=== PATIENT | female | born 1965 | race Caucasian/White ===

== ENCOUNTER 2019-04-01 05:49 | Day surgery (SDC) | payer MEDICARE ==
[2019-04-01] MEDS ORDERED: Lactated Ringers 1,000 ML IV SCH (06:30)
[2019-04-01] MEDS ORDERED: DIPRIVAN 200 MG/20 ML IV ONE ×2 (07:27→07:45)
[2019-04-01 08:25] VITALS: O2SAT 97
[2019-04-01 09:14] VITALS: BP 148/67; PULSE 66
--- NOTE | 2019-04-01 11:38 | OP ---
SURGERY DATE/TIME: 04/01/2019 0733 PREOPERATIVE DIAGNOSIS: Persistent epigastric abdominal pain. POSTOPERATIVE DIAGNOSIS: Normal exam. PROCEDURE: Diagnostic EGD. SURGEON: Feliciano Kang M.D. ANESTHESIA: MAC by Rafael To CRNA. ESTIMATED BLOOD LOSS: None. SPECIMENS: None. DESCRIPTION OF PROCEDURE: After informed written consent was obtained, the patient was taken to the endoscopy suite. She underwent monitored anesthesia and a bite block was inserted. The endoscope was inserted into the posterior oropharynx and under direct visualization the esophagus was traversed. The esophageal mucosa was free of any lesions or defects. Upon entering the stomach a normal gastroesophageal junction was noted. The gastric mucosa had a normal rugated appearance free of any obvious lesions or defect. The antrum was closely inspected with no evidence of gastritis, ulceration, etc. The pylorus was traversed. The first and second portions of the duodenum showed no abnormalities. The scope was removed and upon withdrawal again all mucosal structures appeared within normal limits. The scope was removed and the patient was transferred to the recovery room in good condition.
== END 2019-04-01 09:00 | disposition home or self-care (01) ==
LOC: SDC 05:49
PROVIDERS: ATTEND Family Medicine
DX: R10.13 Epigastric pain (principal); E11.9 Type 2 diabetes mellitus without complications; I25.10 Atherosclerotic heart disease of native coronary artery without angina pectoris; E78.5 Hyperlipidemia, unspecified
CPT/HCPCS: 82962; J2704

== ENCOUNTER 2020-02-16 14:52 | Observation (INO) | payer MEDICARE ==
[2020-02-16 15:34] LABS: Absolute Neutrophil Ct (ANC) 4.36 (1.4-6.9); BASOPHIL % 0.5 % (0.0-0.4); Basophil (Absolute #) 0.04 (0-0.4); Eosinophil % 5.7 % (0.00-5.0); Eosinophil (Absolute #) 0.46 (0-0.5); Hematocrit 38.8 % (35-47); Hemoglobin 12.5 gm/dl (12.0-16.0); Lymphocyte (Absolute #) 2.67 (1.0-4.6); Mean Cell Volume 93.3 fl (78-100); Mean Corpuscular Hgb Concent. 32.2 g/dl (32-36); Mean Platelet Volume 10.3 fl (7.5-11.0); Monocyte (Absolute #) 0.55 (0.0-1.3); Monocytes % 6.8 % (0.0-12.0); Platelet Count 279 K/mm3 (150-450); Red Blood Count 4.16 M/mm3 (4.1-5.4); Red Cell Distribution Width 13.8 % (11.5-14.0); White Blood Count 8.1 K/mm3 (4.0-10.5)
[2020-02-16 15:51] LABS: ALBUMIN 4.4 g/dL (3.5-5.0); ALKALINE PHOSPHATASE 80 U/L (38-126); ANION GAP 16.1 MEQ/L (5-15); BLOOD UREA NITROGEN 13 mg/dL (7-17); CHLORIDE 102 mmol/L (98-107); Calcium 9.7 mg/dL (8.4-10.2); Carbon Dioxide 26 mmol/L (22-30); Creatinine 1 0.71 mg/dL (0.52-1.04); Glucose 116 mg/dL (74-106); MAGNESIUM 1.7 mg/dL (1.6-2.3); NT PRO BNP 163 pg/mL (0-900); Potassium 4.6 mmol/L (3.5-5.1); SGOT/AST 24 U/L (14-36); SGPT/ALT 19 U/L (0-35); SODIUM 140 mmol/L (137-145); Total Protein 7.4 g/dL (6.3-8.2)
[2020-02-16 16:13] LABS: INFLUENZA A NEGATIVE (NEGATIVE); INFLUENZA B NEGATIVE (NEGATIVE); RESPIRATORY SYNCTIAL VIRUS NEGATIVE (Negative)
--- NOTE | 2020-02-16 16:17 | XRAY ---
Indication: Short of breath. Comparison: February 27, 2016. Portable chest again demonstrates hazy lingula infiltrate/atelectasis. Remaining lungs clear. Heart not enlarged again with CABG surgery. Bony thorax intact again with lower cervical fusion.
[2020-02-16 16:22] LABS: Appearance CLEAR (CLEAR); Bilirubin NEGATIVE (NEGATIVE); Blood NEGATIVE Ery/ul (0-5); Glucose NEGATIVE (NEGATIVE); Ketones NEGATIVE (NEGATIVE); Leukocyte Esterase NEGATIVE (NEGATIVE); Mucus SLIGHT /HPF (NEGATIVE); Nitrite NEGATIVE (NEGATIVE); Protein,Urine Dip NEGATIVE (Negative); Specific Gravity 1.017 (1.005-1.025); Urobilinogen NEGATIVE mg/dL (0-1)
--- NOTE | 2020-02-16 16:27 | ERPHSYRPT ---
- History of Present Illness Time Seen by Provider: 02/16/20 14:56 Historian: patient Exam Limitations: no limitations Patient Subjective Stated Complaint: pt here for chest pain and shortness of breath since this morning, she wears o2 at night, no cough or fever, pt was sent over from the resp clinic Triage Nursing Assessment: pt alert, arrived per wc, with mask, resp easy, chest diminished to lower bases, moves all ext well Physician History: Patient is a 54-year-old female with a history of CABG x3 vessels in 2012 and coronary artery stent x2 placed in 2013. Patient presents to our ED with complaints of chest pain or shortness of breath that started this morning at approximately 6 AM. Symptoms have been constant. Patient is a diabetic. Symptoms are mild to moderate in intensity. No specific worsening or improving factors. No associated fever. No trauma. No nausea or vomiting. No diarrhea. No rash. Patient voices no other complaints at this time. Timing/Duration: today (Symptoms started 6 AM this morning.), improved Activities at Onset: none Quality: aching Location: substernal Chest Pain Radiation: no radiation Modifying Factors: Improves With: nothing Associated Symptoms: denies symptoms Nitro Today/Relief: no nitro taken today Aspirin Treatment Today: no aspirin today (Patient took her dose of Plavix today ) Allergies/Adverse Reactions: No Known Drug Allergies Allergy (Verified 02/16/20 15:16) Home Medications: Atorvastatin Calcium [Lipitor 40Mg] 80 mg PO HS 04/17/15 [History] Clopidogrel Bisulfate 75 mg [PLAVIX 75 MG Tablet] 75 mg PO DAILY 04/17/15 [History] Ferrous Sulfate 325 mg [Feosol 325 mg] 325 mg PO DAILY 04/17/15 [History] Hydrocodone Bit/Acetaminophen [[place] 10-325 Tablet] 1 ea PO QID PRN PRN [History] Magnesium Oxide 400 mg [Mag-Ox 400] 400 mg PO BID 04/17/15 [History] Metformin HCl 500 mg [Glucophage 500 MG] 1,000 mg PO DAILY 04/17/15 [ History] Metoprolol Tartrate 25 mg [Lopressor 25MG Tab] 50 mg PO BID 04/17/15 [ History] Nitroglycerin 0.4 mg SL UD 04/17/15 [History] [place]-3S/Dha/Epa/Fish Oil [Fish Oil EC 1,200 mg Softgel] 2 ea PO DAILY 04/17/15 [History] Pantoprazole Sodium [Protonix] 40 mg PO DAILY 04/17/15 [History] ALPRAZolam [Xanax 0.5 mg] 0.5 mg PO Q4H PRN PRN 05/30/15 [History] Aspirin 81 gm Chew [Baby Aspirin 81 mg Chew] 81 mg PO DAILY 05/30/15 [ History] Cyanocobalamin (Vitamin B-12) [Vitamin B-12] 1,000 mcg PO DAILY 05/30/15 [ History] Gabapentin [Neurontin] 800 mg PO TID 05/30/15 [History] Ipratropium/Albuterol Sulfate [Iprat-Albut 0.5-3(2.5) mg/3 ml] 3 ml IH TID 05/30 [History] Isosorbide Mononitrate 60 mg [Imdur 60MG] 60 mg PO DAILY 07/05/15 [History] Ranolazine [Ranexa] 1,000 mg PO BID 07/05/15 [History] Varenicline Tartrate [Chantix] 1 mg PO BID 02/27/16 [History] Insulin Glargine,Hum.rec.anlog [Toujeo Max Solostar] 60 unit SQ BID 01/05/19 [ History] Insulin Lispro [Humalog] 100 unit SQ BID 01/05/19 [History] Oxybutynin Chloride 5 mg PO BID 01/05/19 [History] Ezetimibe 10 mg [Zetia 10 MG] 10 mg PO DAILY 03/24/19 [History] Insulin Glargine,Hum.rec.anlog [Toujeo Solostar] 300 unit SQ BID 03/24/19 [ History] Nystatin Powder 15 gm [Nystop Powder 15 gm] 60 gm TP BID 03/24/19 [History ] Sucralfate 1 gm [Carafate 1 GM] 1 g PO ACHS 03/24/19 [History] Hx Tetanus, Diphtheria Vaccination/Date Given: Yes Hx Influenza Vaccination/Date Given: Yes Hx Pneumococcal Vaccination/Date Given: Yes Immunizations Up to Date: Yes Travel Risk - International Travel Have you traveled outside of the country in past 3 weeks: No Have you or anyone close to you been diagnosed with or: No Do your reside in a community with a known COVID-19 case?: Yes If Yes where:: [facility] - Coronavirus Screening Has patient experienced Coronavirus symptoms: Yes Symptoms experienced: respiratory symptoms (i.e.Cought,shortness of breath) - Past Medical History Pertinent Past Medical History: Yes Neurological History: Peripheral Neuropathy ENT History: No Pertinent History Cardiac History: Coronary Artery Disease, High Cholesterol, Hypertension, Myocardial Infarction (AR) Respiratory History: COPD, Sleep Apnea, Other Endocrine Medical History: Diabetes Type II Musculoskeletal History: No Pertinent History GI Medical History: GERD, Other History: No Pertinent History Psycho-Social History: Anxiety, Depression Female Reproductive Disorders: No Pertinent History Other Medical History: hiatal hernia, blood transfusion after heart surgery in 2013, 2 liters o2 at night. - Past Surgical History Past Surgical History: Yes Neuro Surgical History: No Pertinent History Cardiac: CABG, Cardiac Catheterization, Cardiac Stent Respiratory: No Pertinent History Gastrointestinal: No Pertinent History Genitourinary: No Pertinent History Musculoskeletal: Orthopedic Surgery Female Surgical History: No Pertinent History Other Surgical History: NECK SURG. C5-7 disc replaced and plate placed and left ankle stabilization and wire placed,. CABG x 4 vessels. Cardiac stents x 2. Follows Dr. Sousa every 6 months - Social History Smoking Status: Former smoker How long have you smoked: 35 Exposure to second hand smoke: No Drug Use: none Patient Lives Alone: Yes - Female History Hx Last Menstrual Period: hyster - Nursing Vital Signs Nursing Vital Signs: Initial Vital Signs Temperature 99.0 F 02/16/20 14:52 Pulse Rate 55 L 02/16/20 14:52 Respiratory Rate 22 02/16/20 14:52 Blood Pressure 151/71 02/16/20 14:52 O2 Sat by Pulse Oximetry 98 02/16/20 14:52 Pain Scale Pain Intensity 2 - Physical Exam SpO2: 99 - Course Nursing assessment & vital signs reviewed: Yes EKG Interpreted by Me: Sinus Rhythm, Sinus Roberto, NORMAL AXIS, NORMAL INTERVALS , Other (EKG appears essentially unchanged from previous.) - Radiology Exams Chest X-ray Interpretation: Teleradiologist Report (Haziness lingula possible infiltrate versus atelectasis. Remaining lungs are clear. Evidence of CABG surgery observed.) Ordered Tests: Active Orders 24 hr Category Date Time Status Digital Content Manager STAT Care 02/16/20 14:58 Active EKG-ER Only STAT Care 02/16/20 14:56 Active IV Insertion STAT Care 02/16/20 14:56 Active IV Insertion-2nd Peripheral STAT Care 02/16/20 15:20 Active Isolation, Initiate & Maintain Q4H Care 02/16/20 15:32 Active Oxygen-ED Only Nasal Cannula 2 lpm Care 02/16/20 15:20 Active Pulse Oximetry (ED) STAT Care 02/16/20 14:56 Active CHEST 1 VIEW (PORTABLE) Stat Exams 02/16/20 14:57 Completed BLOOD CULTURE Stat Lab 02/16/20 15:10 Received CBC W DIFF Stat Lab 02/16/20 15:10 Completed CMP Stat Lab 02/16/20 15:10 Completed Lactic Acid Stat Lab 02/16/20 14:56 Completed MAGNESIUM Stat Lab 02/16/20 15:10 Completed NT PRO BNP Stat Lab 02/16/20 15:10 Completed TROPONIN Q3H Lab 02/16/20 15:00 Completed TROPONIN Q3H Lab 02/16/20 18:00 Ordered TROPONIN Q3H Lab 02/16/20 21:00 Ordered TROPONIN Q3H Lab 02/17/20 00:00 Ordered TROPONIN Q3H Lab 02/17/20 03:00 Ordered UA W/RFX UR CULTURE Stat Lab 02/16/20 15:19 Ordered Lab/Rad Data: Laboratory Result Diagrams 02/16/20 15:10 02/16/20 15:10 Laboratory Results 02/16/20 02/16/20 02/16/20 Range/Units 15:10 15:10 15:00 WBC 8.1 (4.0-10.5) K/mm3 RBC 4.16 (4.1-5.4) M/mm3 Hgb 12.5 (12.0-16.0) gm/dl Hct 38.8 (35-47) % MCV 93.3 (78-100) fl MCH 30.0 (26-32) pg MCHC 32.2 (32-36) g/dl RDW 13.8 (11.5-14.0) % Plt Count 279 (150-450) K/mm3 MPV 10.3 (7.5-11.0) fl Gran % 54.0 (36.0-66.0) % Eos # (Auto) 0.46 (0-0.5) Absolute Lymphs (auto) 2.67 (1.0-4.6) Absolute Monos (auto) 0.55 (0.0-1.3) Lymphocytes % 33.0 (24.0-44.0) % Monocytes % 6.8 (0.0-12.0) % Eosinophils % 5.7 H (0.00-5.0) % Basophils % 0.5 (0.0-0.4) % Absolute Granulocytes 4.36 (1.4-6.9) Basophils # 0.04 (0-0.4) Sodium 140 (137-145) mmol/L Potassium 4.6 (3.5-5.1) mmol/L Chloride 102 (98-107) mmol/L Carbon Dioxide 26 (22-30) mmol/L Anion Gap 16.1 H (5-15) MEQ/L BUN 13 (7-17) mg/dL Creatinine 0.71 (0.52-1.04) mg/dL Estimated GFR > 60.0 ML/MIN Glucose 116 H (74-106) mg/dL Lactic Acid (0.4-2.0) Calcium 9.7 (8.4-10.2) mg/dL Magnesium 1.7 (1.6-2.3) mg/dL Total Bilirubin 0.60 (0.2-1.3) mg/dL AST 24 (14-36) U/L ALT 19 (0-35) U/L Alkaline Phosphatase 80 (38-126) U/L Troponin I < 0.012 (0.000-0.034) ng/mL NT-Pro-B Natriuret Pep 163 (0-900) pg/mL Serum Total Protein 7.4 (6.3-8.2) g/dL Albumin 4.4 (3.5-5.0) g/dL /04/01 Range/Units 14:56 WBC (4.0-10.5) K/mm3 RBC (4.1-5.4) M/mm3 Hgb (12.0-16.0) gm/dl Hct (35-47) % MCV (78-100) fl MCH (26-32) pg MCHC (32-36) g/dl RDW (11.5-14.0) % Plt Count (150-450) K/mm3 MPV (7.5-11.0) fl Gran % (36.0-66.0) % Eos # (Auto) (0-0.5) Absolute Lymphs (auto) (1.0-4.6) Absolute Monos (auto) (0.0-1.3) Lymphocytes % (24.0-44.0) % Monocytes % (0.0-12.0) % Eosinophils % (0.00-5.0) % Basophils % (0.0-0.4) % Absolute Granulocytes (1.4-6.9) Basophils # (0-0.4) Sodium (137-145) mmol/L Potassium (3.5-5.1) mmol/L Chloride (98-107) mmol/L Carbon Dioxide (22-30) mmol/L Anion Gap (5-15) MEQ/L BUN (7-17) mg/dL Creatinine (0.52-1.04) mg/dL Estimated GFR ML/MIN Glucose (74-106) mg/dL Lactic Acid 2.7 H (0.4-2.0) Calcium (8.4-10.2) mg/dL Magnesium (1.6-2.3) mg/dL Total Bilirubin (0.2-1.3) mg/dL AST (14-36) U/L ALT (0-35) U/L Alkaline Phosphatase (38-126) U/L Troponin I (0.000-0.034) ng/mL NT-Pro-B Natriuret Pep (0-900) pg/mL Serum Total Protein (6.3-8.2) g/dL Albumin (3.5-5.0) g/dL - Progress Progress: improved - Departure Departure Disposition: Observation Clinical Impression: Acute coronary syndrome Condition: Stable Critical Care Time: No Referrals: VICKY GUTIERREZ MD [Primary Care Provider] -
[2020-02-16] MEDS ORDERED: NITRO-BID 2% UD PACKETS TOP ONE (16:30)
[2020-02-16] MEDS ORDERED: NITRO-BID 2% UD PACKETS ONE (16:35)
[2020-02-16] MEDS ORDERED: Senokot-S Tablet PO PRN (17:21)
[2020-02-16] MEDS ORDERED: Zofran 4 MG/2 ML VIAL IV PRN (17:21)
[2020-02-16] MEDS ORDERED: MILK OF MAGNESIA 30 ML PO PRN (17:21)
[2020-02-16] MEDS ORDERED: Sodium Chloride 0.9% 1000 ML 1,000 ML IV SCH (17:21)
[2020-02-16] MEDS ORDERED: MAALOX ES 30 ML UNIT DOSE PO PRN (17:21)
[2020-02-16] MEDS ORDERED: TYLENOL 325 MG PO PRN (17:21)
[2020-02-16] MEDS ORDERED: xanAX 0.5 MG PO PRN (18:03)
[2020-02-16] MEDS ORDERED: Norco 10/325 MG Tablet PO PRN (18:03)
[2020-02-16] MEDS ORDERED: ZOCOR 20MG PO SCH (22:00)
[2020-02-16] MEDS ORDERED: HUMALOG SQ SCH (22:00)
[2020-02-16] MEDS ORDERED: NON-FORMULARY ITEM PO SCH (22:00)
[2020-02-16] MEDS: Neurontin 400 MG PO SCH (23:09)
[2020-02-16] MEDS: Ranexa 500 MG PO SCH (23:11)
[2020-02-16] MEDS: Lopressor 50 MG PO SCH (23:11)
[2020-02-16] MEDS: MAG-OX 400 PO SCH (23:11)
[2020-02-16] MEDS: Ditropan 5 MG PO SCH (23:12)
[2020-02-17 03:57] LABS: Risk Ratio 2.7
[2020-02-17] MEDS ORDERED: DUONEB 0.5-3 MG/3 ml Neb IH PRN (07:22)
[2020-02-17] MEDS ORDERED: Nitrostat 0.4 MG Tablet SL PRN (07:30)
[2020-02-17] MEDS ORDERED: MEDICATION INTERVENTION MC SCH (07:45)
[2020-02-17] MEDS ORDERED: Glucophage 500 MG PO SCH (08:00)
[2020-02-17] MEDS ORDERED: Lantus Insulin SQ SCH (08:00)
[2020-02-17] MEDS ORDERED: HUMALOG SQ SCH (08:00)
[2020-02-17] MEDS: Ranexa 500 MG PO SCH (08:38)
[2020-02-17] MEDS: Ditropan 5 MG PO SCH (08:38)
[2020-02-17] MEDS: MAG-OX 400 PO SCH (08:39)
[2020-02-17] MEDS: Lopressor 50 MG PO SCH (08:39)
[2020-02-17] MEDS: Neurontin 400 MG PO SCH (08:39)
[2020-02-17] MEDS ORDERED: NON-FORMULARY ITEM (Cyanocobalamin (Vitamin B-12) [Vitamin B-12] 1,000 MCG) PO SCH (10:00)
[2020-02-17] MEDS ORDERED: PLAVIX 75 MG Tablet PO SCH (10:00)
[2020-02-17] MEDS ORDERED: Imdur 30 MG PO SCH (10:00)
[2020-02-17] MEDS ORDERED: Vitamin B-12 500 MCG PO SCH (10:00)
[2020-02-17] MEDS ORDERED: Protonix 40MG Tablet PO SCH (10:00)
[2020-02-17] MEDS ORDERED: EPA PO SCH (10:00)
[2020-02-17] MEDS ORDERED: Imdur 60MG PO SCH (10:00)
[2020-02-17] MEDS ORDERED: ECOTRIN 81 MG PO SCH (10:00)
[2020-02-17] MEDS ORDERED: FISH OIL PO SCH (10:00)
[2020-02-17] MEDS ORDERED: NON-FORMULARY ITEM (Varenicline Tartrate [Chantix] 1 MG) PO SCH (10:00)
[2020-02-17] MEDS ORDERED: OMEGA PO SCH (10:00)
[2020-02-17] MEDS ORDERED: Zetia 10 MG PO SCH (10:00)
[2020-02-17] MEDS ORDERED: INSULIN GLARGINE HUM REC ANLOG 60 UNIT SQ SCH (10:00)
[2020-02-17] MEDS ORDERED: FEOSOL 325 MG PO SCH (10:00)
[2020-02-17] MEDS ORDERED: FISH OIL 1,000 MG CAPSULE PO SCH (10:00)
[2020-02-17] MEDS ORDERED: BABY ASPIRIN 81 MG CHEW PO SCH (10:00)
[2020-02-17] MEDS ORDERED: DHA PO SCH (10:00)
--- NOTE | 2020-02-17 11:54 | PCM.HP ---
History of Present Illness - Chief Complaint Chief Complaint: Acute Coronary Syndrome Date: 02/17/20 History of Present Illness: is a 54 year old female that was seen today following admission from ER for chest pain. Patient reports that chest pain started at 6 am Patient reports she was also having shortness of breath. Patient reports she is normally on 2 L of oxygen. Patient reports she has had chest pressure before but not like. Patient sees Dr sousa. Bypass has stents. [place] like breathing difficulty. Chest pressure was constant. No medication changes. 4 weeks another echo and nuclear stress. - Review of Systems Constitutional: No Fever, No Chills Eyes: No Symptoms Ears, Nose, & Throat: Snoring (Patient has been told she snores. She wears oxygen at all times normally 2L increased to 3L until she came in to ER. It made her feel better. ) Respiratory: Orthopnea, Short Of Breath, No Cough, No Wheezing Cardiac: Chest Pain, Palpitations (Increased in frequency), No Edema, No Syncope Abdominal/Gastrointestinal: No Abdominal Pain, No Nausea, No Vomiting, No Diarrhea Genitourinary Symptoms: No Dysuria Musculoskeletal: Back Pain, Joint Pain (L knee ) Skin: No Rash Neurological: No Dizziness, No Focal Weakness, No Sensory Changes Psychological: Anxiety, No Alcohol Abuse, No Drug Abuse, No Depression, No Suicidal Ideations, No Homicidal Ideations Endocrine: No Symptoms Hematologic/Lymphatic: Anemia, No Blood Clots, No Easy Bleeding Medications & Allergies Home Medications: Home Medication List Atorvastatin Calcium [Lipitor 40Mg] 80 mg PO HS 04/17/15 [History Confirmed 04/01] Clopidogrel Bisulfate 75 mg [PLAVIX 75 MG Tablet] 75 mg PO DAILY 04/17/15 [History Confirmed 02/16/20] Ferrous Sulfate 325 mg [Feosol 325 mg] 325 mg PO DAILY 04/17/15 [History Confirmed 02/16/20] Hydrocodone Bit/Acetaminophen [Ross 10-325 Tablet] 1 ea PO QID PRN PRN [History Confirmed 02/16/20] Magnesium Oxide 400 mg [Mag-Ox 400] 400 mg PO BID 04/17/15 [History Confirmed 02/16/20] Metformin HCl 500 mg [Glucophage 500 MG] 1,000 mg PO DAILY 04/17/15 [ History Confirmed 02/16/20] Metoprolol Tartrate 25 mg [Lopressor 25MG Tab] 50 mg PO BID 04/17/15 [ History Confirmed 02/16/20] Nitroglycerin 0.4 mg SL UD 04/17/15 [History Confirmed 02/16/20] [place]-3S/Dha/Epa/Fish Oil [Fish Oil EC 1,200 mg Softgel] 2 ea PO DAILY 04/17/15 [History Confirmed 02/16/20] Pantoprazole Sodium [Protonix] 40 mg PO DAILY 04/17/15 [History Confirmed ] ALPRAZolam [Xanax 0.5 mg] 0.5 mg PO Q4H PRN PRN 05/30/15 [History Confirmed 04/01] Aspirin 81 gm Chew [Baby Aspirin 81 mg Chew] 81 mg PO DAILY 05/30/15 [ History Confirmed 02/16/20] Cyanocobalamin (Vitamin B-12) [Vitamin B-12] 1,000 mcg PO DAILY 05/30/15 [ History Confirmed 02/16/20] Gabapentin [Neurontin] 800 mg PO TID 05/30/15 [History Confirmed 02/16/20] Ipratropium/Albuterol Sulfate [Iprat-Albut 0.5-3(2.5) mg/3 ml] 3 ml IH TID PRN 05/30/15 [History Confirmed 02/16/20] Isosorbide Mononitrate 60 mg [Imdur 60MG] 90 mg PO DAILY 07/05/15 [History Confirmed 02/16/20] Ranolazine [Ranexa] 1,000 mg PO BID 07/05/15 [History Confirmed 02/16/20] Varenicline Tartrate [Chantix] 1 mg PO BID 02/27/16 [History Confirmed 02/16/20] Insulin Glargine,Hum.rec.anlog [Toujayden Dong Solostar] 60 unit SQ DAILY 01/05/19 [ History Confirmed 02/16/20] Insulin Lispro [Humalog] 30 unit SQ BID 01/05/19 [History Confirmed 02/16/20] Oxybutynin Chloride 5 mg PO BID 01/05/19 [History Confirmed 02/16/20] Ezetimibe 10 mg [Zetia 10 MG] 10 mg PO DAILY 03/24/19 [History Confirmed 04/01] Allergies/Adverse Reactions: Allergies Allergy/AdvReac Type Severity Reaction Status Date / Time No Known Drug Allergies Allergy Verified 02/16/20 15:16 - Past Medical History Past Medical History: Yes Neurological History: Peripheral Neuropathy ENT History: No Pertinent History Cardiac History: Coronary Artery Disease, High Cholesterol, Hypertension, Myocardial Infarction ([place]) Respiratory History: COPD, Sleep Apnea, Other Endocrine Medical History: Diabetes Type II Musculoskelatal History: No Pertinent History GI Medical History: GERD, Other History: No Pertinent History Pyscho-Social History: Anxiety, Depression Reproductive Disorders: No Pertinent History Comment: hiatal hernia - Female History Hx Last Menstrual Period: hyster - Past Surgical History Past Surgical History: Yes Neuro Surgical History: No Pertinent History Cardiac History: CABG, Cardiac Catheterization, Cardiac Stent Respiratory Surgery: No Pertinent History GI Surgical History: No Pertinent History Genitourinary Surgical Hx: No Pertinent History Musculskeletal Surgical Hx: Orthopedic Surgery Female Surgical History: No Pertinent History Other Surgical History: NECK SURG. C5-7 disc replaced and plate placed and left ankle stabilization and wire placed,. CABG x 4 vessels. Cardiac stents x 2. Follows Dr[address] Sousa every 6 months - Social History Smoking Status: Current some day smoker How long have you smoked: 30+ YEARS Exposure to second hand smoke: No Alcohol: None Drug Use: none - Physical Exam Vital Signs: Vital Signs - 24 hr Temp Pulse Resp BP Pulse Ox 02/17/20 09:25 49 L 96 02/17/20 07:42 97.8 F 56 L 12 119/53 97 02/17/20 07:27 98 02/17/20 04:00 97.7 F 50 L 16 112/57 97 02/17/20 00:00 50 L 14 97 02/16/20 20:25 98 02/16/20 20:00 98.1 F 56 L 18 126/46 99 02/16/20 17:53 98 02/16/20 17:38 98.4 F 56 L 20 134/61 98 02/16/20 17:31 98.4 F 56 L 20 134/61 99 02/16/20 17:04 54 L 16 133/80 99 02/16/20 16:44 99 02/16/20 16:03 56 L 18 107/64 99 02/16/20 15:27 60 18 108/60 98 02/16/20 15:19 94 L 02/16/20 14:52 99.0 F 55 L 22 151/71 55 L Oxygen-Last 24 hours Oxygen Flowrate (L/min)-RT 2 Oxygen Flowrate (L/min)-RT 2 Oxygen Flowrate (L/min)-RT 2 Oxygen Flowrate (L/min)-RT 2 Results - Labs Lab/Micro Results: Accuchecks Date 02/17/20 Date 02/16/20 Time 07:22 Time 21:00 Accucheck Value: 115 Accucheck Value: 110 Accucheck Value: 119 Lab Results-Last 24 Hours 02/16/20 02/16/20 02/16/20 Range/Units 14:56 15:00 15:10 WBC 8.1 (4.0-10.5) K/mm3 RBC 4.16 (4.1-5.4) M/mm3 Hgb 12.5 (12.0-16.0) gm/dl Hct 38.8 (35-47) % MCV 93.3 (78-100) fl MCH 30.0 (26-32) pg MCHC 32.2 (32-36) g/dl RDW 13.8 (11.5-14.0) % Plt Count 279 (150-450) K/mm3 MPV 10.3 (7.5-11.0) fl Gran % 54.0 (36.0-66.0) % Eos # (Auto) 0.46 (0-0.5) Absolute Lymphs (auto) 2.67 (1.0-4.6) Absolute Monos (auto) 0.55 (0.0-1.3) Lymphocytes % 33.0 (24.0-44.0) % Monocytes % 6.8 (0.0-12.0) % Eosinophils % 5.7 H (0.00-5.0) % Basophils % 0.5 (0.0-0.4) % Absolute Granulocytes 4.36 (1.4-6.9) Basophils # 0.04 (0-0.4) Sodium (137-145) mmol/L Potassium (3.5-5.1) mmol/L Chloride (98-107) mmol/L Carbon Dioxide (22-30) mmol/L Anion Gap (5-15) MEQ/L BUN (7-17) mg/dL Creatinine (0.52-1.04) mg/dL Estimated GFR ML/MIN Glucose (74-106) mg/dL Hemoglobin A1c (4.5-6.0) % Lactic Acid 2.7 H (0.4-2.0) Calcium (8.4-10.2) mg/dL Magnesium (1.6-2.3) mg/dL Total Bilirubin (0.2-1.3) mg/dL AST (14-36) U/L ALT (0-35) U/L Alkaline Phosphatase (38-126) U/L Troponin I < 0.012 (0.000-0.034) ng/mL NT-Pro-B Natriuret Pep (0-900) pg/mL Serum Total Protein (6.3-8.2) g/dL Albumin (3.5-5.0) g/dL Triglycerides (30-150) mg/dL Cholesterol (50-200) mg/dL LDL Cholesterol (30-100) mg/dL HDL Cholesterol (40-60) mg/dL Heart Disease Risk Ratio Urine Color (YELLOW) Urine Appearance (CLEAR) Urine pH (5-6) Ur Specific [place] (1.005-1.025) Urine Protein (Negative) Urine Ketones (NEGATIVE) Urine Blood (0-5) Sai/ul Urine Nitrite (NEGATIVE) Urine Bilirubin (NEGATIVE) Urine Urobilinogen (0-1) mg/dL Ur Leukocyte Esterase (NEGATIVE) Urine WBC (Auto) (0-5) /HPF Urine RBC (Auto) (0-2) /HPF U Epithel Cells (Auto) (FEW) /HPF Urine Bacteria (Auto) (NEGATIVE) /HPF Urine Mucus (Auto) (NEGATIVE) /HPF Urine Culture Reflexed (NO) Urine Glucose (NEGATIVE) mg/dL Influenza Type A Ag (NEGATIVE) Influenza Type B Ag (NEGATIVE) RSV (PCR) (Negative) 02/16/20 02/16/20 02/16/20 Range/Units 15:10 15:10 17:17 WBC (4.0-10.5) K/mm3 RBC (4.1-5.4) M/mm3 Hgb (12.0-16.0) gm/dl Hct (35-47) % MCV (78-100) fl MCH (26-32) pg MCHC (32-36) g/dl RDW (11.5-14.0) % Plt Count (150-450) K/mm3 MPV (7.5-11.0) fl Gran % (36.0-66.0) % Eos # (Auto) (0-0.5) Absolute Lymphs (auto) (1.0-4.6) Absolute Monos (auto) (0.0-1.3) Lymphocytes % (24.0-44.0) % Monocytes % (0.0-12.0) % Eosinophils % (0.00-5.0) % Basophils % (0.0-0.4) % Absolute Granulocytes (1.4-6.9) Basophils # (0-0.4) Sodium 140 (137-145) mmol/L Potassium 4.6 (3.5-5.1) mmol/L Chloride 102 (98-107) mmol/L Carbon Dioxide 26 (22-30) mmol/L Anion Gap 16.1 H (5-15) MEQ/L BUN 13 (7-17) mg/dL Creatinine 0.71 (0.52-1.04) mg/dL Estimated GFR > 60.0 ML/MIN Glucose 116 H (74-106) mg/dL Hemoglobin A1c (4.5-6.0) % Lactic Acid 2.7 H (0.4-2.0) Calcium 9.7 (8.4-10.2) mg/dL Magnesium 1.7 (1.6-2.3) mg/dL Total Bilirubin 0.60 (0.2-1.3) mg/dL AST 24 (14-36) U/L ALT 19 (0-35) U/L Alkaline Phosphatase 80 (38-126) U/L Troponin I (0.000-0.034) ng/mL NT-Pro-B Natriuret Pep 163 (0-900) pg/mL Serum Total Protein 7.4 (6.3-8.2) g/dL Albumin 4.4 (3.5-5.0) g/dL Triglycerides (30-150) mg/dL Cholesterol (50-200) mg/dL LDL Cholesterol (30-100) mg/dL HDL Cholesterol (40-60) mg/dL Heart Disease Risk Ratio Urine Color (YELLOW) Urine Appearance (CLEAR) Urine pH (5-6) Ur Specific [place] (1.005-1.025) Urine Protein (Negative) Urine Ketones (NEGATIVE) Urine Blood (0-5) Sai/ul Urine Nitrite (NEGATIVE) Urine Bilirubin (NEGATIVE) Urine Urobilinogen (0-1) mg/dL Ur Leukocyte Esterase (NEGATIVE) Urine WBC (Auto) (0-5) /HPF Urine RBC (Auto) (0-2) /HPF U Epithel Cells (Auto) (FEW) /HPF Urine Bacteria (Auto) (NEGATIVE) /HPF Urine Mucus (Auto) (NEGATIVE) /HPF Urine Culture Reflexed (NO) Urine Glucose (NEGATIVE) mg/dL Influenza Type A Ag NEGATIVE (NEGATIVE) Influenza Type B Ag NEGATIVE (NEGATIVE) RSV (PCR) NEGATIVE (Negative) 02/16/20 02/16/20 02/16/20 Range/Units 17:50 21:05 Unknown WBC (4.0-10.5) K/mm3 RBC (4.1-5.4) M/mm3 Hgb (12.0-16.0) gm/dl Hct (35-47) % MCV (78-100) fl MCH (26-32) pg MCHC (32-36) g/dl RDW (11.5-14.0) % Plt Count (150-450) K/mm3 MPV (7.5-11.0) fl Gran % (36.0-66.0) % Eos # (Auto) (0-0.5) Absolute Lymphs (auto) (1.0-4.6) Absolute Monos (auto) (0.0-1.3) Lymphocytes % (24.0-44.0) % Monocytes % (0.0-12.0) % Eosinophils % (0.00-5.0) % Basophils % (0.0-0.4) % Absolute Granulocytes (1.4-6.9) Basophils # (0-0.4) Sodium (137-145) mmol/L Potassium (3.5-5.1) mmol/L Chloride (98-107) mmol/L Carbon Dioxide (22-30) mmol/L Anion Gap (5-15) MEQ/L BUN (7-17) mg/dL Creatinine (0.52-1.04) mg/dL Estimated GFR ML/MIN Glucose (74-106) mg/dL Hemoglobin A1c (4.5-6.0) % Lactic Acid (0.4-2.0) Calcium (8.4-10.2) mg/dL Magnesium (1.6-2.3) mg/dL Total Bilirubin (0.2-1.3) mg/dL AST (14-36) U/L ALT (0-35) U/L Alkaline Phosphatase (38-126) U/L Troponin I < 0.012 < 0.012 (0.000-0.034) ng/mL NT-Pro-B Natriuret Pep (0-900) pg/mL Serum Total Protein (6.3-8.2) g/dL Albumin (3.5-5.0) g/dL Triglycerides (30-150) mg/dL Cholesterol (50-200) mg/dL LDL Cholesterol (30-100) mg/dL HDL Cholesterol (40-60) mg/dL Heart Disease Risk Ratio Urine Color YELLOW (YELLOW) Urine Appearance CLEAR (CLEAR) Urine pH 5.0 (5-6) Ur Specific [place] 1.017 (1.005-1.025) Urine Protein NEGATIVE (Negative) Urine Ketones NEGATIVE (NEGATIVE) Urine Blood NEGATIVE (0-5) Sai/ul Urine Nitrite NEGATIVE (NEGATIVE) Urine Bilirubin NEGATIVE (NEGATIVE) Urine Urobilinogen NEGATIVE (0-1) mg/dL Ur Leukocyte Esterase NEGATIVE (NEGATIVE) Urine WBC (Auto) NONE (0-5) /HPF Urine RBC (Auto) NONE (0-2) /HPF U Epithel Cells (Auto) NONE (FEW) /HPF Urine Bacteria (Auto) NONE (NEGATIVE) /HPF Urine Mucus (Auto) SLIGHT (NEGATIVE) /HPF Urine Culture Reflexed NO (NO) Urine Glucose NEGATIVE (NEGATIVE) mg/dL Influenza Type A Ag (NEGATIVE) Influenza Type B Ag (NEGATIVE) RSV (PCR) (Negative) 02/17/20 02/17/20 02/17/20 Range/Units 00:20 03:20 03:20 WBC (4.0-10.5) K/mm3 RBC (4.1-5.4) M/mm3 Hgb (12.0-16.0) gm/dl Hct (35-47) % MCV (78-100) fl MCH (26-32) pg MCHC (32-36) g/dl RDW (11.5-14.0) % Plt Count (150-450) K/mm3 MPV (7.5-11.0) fl Gran % (36.0-66.0) % Eos # (Auto) (0-0.5) Absolute Lymphs (auto) (1.0-4.6) Absolute Monos (auto) (0.0-1.3) Lymphocytes % (24.0-44.0) % Monocytes % (0.0-12.0) % Eosinophils % (0.00-5.0) % Basophils % (0.0-0.4) % Absolute Granulocytes (1.4-6.9) Basophils # (0-0.4) Sodium (137-145) mmol/L Potassium (3.5-5.1) mmol/L Chloride (98-107) mmol/L Carbon Dioxide (22-30) mmol/L Anion Gap (5-15) MEQ/L BUN (7-17) mg/dL Creatinine (0.52-1.04) mg/dL Estimated GFR ML/MIN Glucose (74-106) mg/dL Hemoglobin A1c (4.5-6.0) % Lactic Acid (0.4-2.0) Calcium (8.4-10.2) mg/dL Magnesium (1.6-2.3) mg/dL Total Bilirubin (0.2-1.3) mg/dL AST (14-36) U/L ALT (0-35) U/L Alkaline Phosphatase (38-126) U/L Troponin I < 0.012 < 0.012 (0.000-0.034) ng/mL NT-Pro-B Natriuret Pep (0-900) pg/mL Serum Total Protein (6.3-8.2) g/dL Albumin (3.5-5.0) g/dL Triglycerides 157 H (30-150) mg/dL Cholesterol 132 (50-200) mg/dL LDL Cholesterol 74 (30-100) mg/dL HDL Cholesterol 48 (40-60) mg/dL Heart Disease Risk Ratio 2.7 Urine Color (YELLOW) Urine Appearance (CLEAR) Urine pH (5-6) Ur Specific [place] (1.005-1.025) Urine Protein (Negative) Urine Ketones (NEGATIVE) Urine Blood (0-5) Sai/ul Urine Nitrite (NEGATIVE) Urine Bilirubin (NEGATIVE) Urine Urobilinogen (0-1) mg/dL Ur Leukocyte Esterase (NEGATIVE) Urine WBC (Auto) (0-5) /HPF Urine RBC (Auto) (0-2) /HPF U Epithel Cells (Auto) (FEW) /HPF Urine Bacteria (Auto) (NEGATIVE) /HPF Urine Mucus (Auto) (NEGATIVE) /HPF Urine Culture Reflexed (NO) Urine Glucose (NEGATIVE) mg/dL Influenza Type A Ag (NEGATIVE) Influenza Type B Ag (NEGATIVE) RSV (PCR) (Negative) 02/17/20 Range/Units 09:00 WBC (4.0-10.5) K/mm3 RBC (4.1-5.4) M/mm3 Hgb (12.0-16.0) gm/dl Hct (35-47) % MCV (78-100) fl MCH (26-32) pg MCHC (32-36) g/dl RDW (11.5-14.0) % Plt Count (150-450) K/mm3 MPV (7.5-11.0) fl Gran % (36.0-66.0) % Eos # (Auto) (0-0.5) Absolute Lymphs (auto) (1.0-4.6) Absolute Monos (auto) (0.0-1.3) Lymphocytes % (24.0-44.0) % Monocytes % (0.0-12.0) % Eosinophils % (0.00-5.0) % Basophils % (0.0-0.4) % Absolute Granulocytes (1.4-6.9) Basophils # (0-0.4) Sodium (137-145) mmol/L Potassium (3.5-5.1) mmol/L Chloride (98-107) mmol/L Carbon Dioxide (22-30) mmol/L Anion Gap (5-15) MEQ/L BUN (7-17) mg/dL Creatinine (0.52-1.04) mg/dL Estimated GFR ML/MIN Glucose (74-106) mg/dL Hemoglobin A1c 7.04 H (4.5-6.0) % Lactic Acid (0.4-2.0) Calcium (8.4-10.2) mg/dL Magnesium (1.6-2.3) mg/dL Total Bilirubin (0.2-1.3) mg/dL AST (14-36) U/L ALT (0-35) U/L Alkaline Phosphatase (38-126) U/L Troponin I (0.000-0.034) ng/mL NT-Pro-B Natriuret Pep (0-900) pg/mL Serum Total Protein (6.3-8.2) g/dL Albumin (3.5-5.0) g/dL Triglycerides (30-150) mg/dL Cholesterol (50-200) mg/dL LDL Cholesterol (30-100) mg/dL HDL Cholesterol (40-60) mg/dL Heart Disease Risk Ratio Urine Color (YELLOW) Urine Appearance (CLEAR) Urine pH (5-6) Ur Specific [place] (1.005-1.025) Urine Protein (Negative) Urine Ketones (NEGATIVE) Urine Blood (0-5) Sai/ul Urine Nitrite (NEGATIVE) Urine Bilirubin (NEGATIVE) Urine Urobilinogen (0-1) mg/dL Ur Leukocyte Esterase (NEGATIVE) Urine WBC (Auto) (0-5) /HPF Urine RBC (Auto) (0-2) /HPF U Epithel Cells (Auto) (FEW) /HPF Urine Bacteria (Auto) (NEGATIVE) /HPF Urine Mucus (Auto) (NEGATIVE) /HPF Urine Culture Reflexed (NO) Urine Glucose (NEGATIVE) mg/dL Influenza Type A Ag (NEGATIVE) Influenza Type B Ag (NEGATIVE) RSV (PCR) (Negative) Accuchecks Date 02/17/20 Date 02/16/20 Time 07:22 Time 21:00 Accucheck Value: 115 Accucheck Value: 110 Accucheck Value: 119 - Radiology Impressions Radiology Exams & Impressions: Radiology Procedures Category Date Time Status CHEST 1 VIEW (PORTABLE) Stat Exams 02/16/20 14:57 Completed - Other Procedures and Tests Respiratory Therapy 02/16/20 17:53 Oxygen NASAL CANNULA 2 lpm 02/18/20 05:00 EKG ONCE 02/19/20 05:00 EKG ONCE
[2020-02-17 12:03] VITALS: O2SAT 95
--- NOTE | 2020-02-17 12:51 | PCM.DS ---
Discharge Summary Date of Admission: 02/16/20 17:15 Date of Discharge: 02/17/20 Admitting Physician: ARCELIA MAYERS MD Primary Care Provider: VICKY GUTIERREZ Allergies Allergies No Known Drug Allergies Allergy (Verified 02/16/20 15:16) Hospital Summary - Vitals & Intake/Output Vital Signs: Vital Signs Temperature 98.5 F 02/17/20 12:00 Pulse Rate 53 L 02/17/20 12:00 Respiratory Rate 14 02/17/20 12:00 Blood Pressure 118/56 02/17/20 12:00 O2 Sat by Pulse Oximetry 95 02/17/20 12:00 Intake & Output: Intake & Output 02/15/20 02/16/20 02/17/20 02/18/20 11:59 11:59 11:59 11:59 Intake Total 540 Balance 540 Weight 114.7 kg - Lab Result Diagrams: 02/16/20 15:10 02/16/20 15:10 Lab Results-Last 24 Hrs: Accuchecks Date 02/17/20 Date 02/17/20 Date 02/16/20 Time 11:30 Time 07:22 Time 21:00 Accucheck Value: 86 Accucheck Value: 115 Accucheck Value: 110 Accucheck Value: 119 Lab Results-Last 24 Hours 02/16/20 02/16/20 02/16/20 Range/Units 14:56 15:00 15:10 WBC 8.1 (4.0-10.5) K/mm3 RBC 4.16 (4.1-5.4) M/mm3 Hgb 12.5 (12.0-16.0) gm/dl Hct 38.8 (35-47) % MCV 93.3 (78-100) fl MCH 30.0 (26-32) pg MCHC 32.2 (32-36) g/dl RDW 13.8 (11.5-14.0) % Plt Count 279 (150-450) K/mm3 MPV 10.3 (7.5-11.0) fl Gran % 54.0 (36.0-66.0) % Eos # (Auto) 0.46 (0-0.5) Absolute Lymphs (auto) 2.67 (1.0-4.6) Absolute Monos (auto) 0.55 (0.0-1.3) Lymphocytes % 33.0 (24.0-44.0) % Monocytes % 6.8 (0.0-12.0) % Eosinophils % 5.7 H (0.00-5.0) % Basophils % 0.5 (0.0-0.4) % Absolute Granulocytes 4.36 (1.4-6.9) Basophils # 0.04 (0-0.4) Sodium (137-145) mmol/L Potassium (3.5-5.1) mmol/L Chloride (98-107) mmol/L Carbon Dioxide (22-30) mmol/L Anion Gap (5-15) MEQ/L BUN (7-17) mg/dL Creatinine (0.52-1.04) mg/dL Estimated GFR ML/MIN Glucose (74-106) mg/dL Hemoglobin A1c (4.5-6.0) % Lactic Acid 2.7 H (0.4-2.0) Calcium (8.4-10.2) mg/dL Magnesium (1.6-2.3) mg/dL Total Bilirubin (0.2-1.3) mg/dL AST (14-36) U/L ALT (0-35) U/L Alkaline Phosphatase (38-126) U/L Troponin I < 0.012 (0.000-0.034) ng/mL NT-Pro-B Natriuret Pep (0-900) pg/mL Serum Total Protein (6.3-8.2) g/dL Albumin (3.5-5.0) g/dL Triglycerides (30-150) mg/dL Cholesterol (50-200) mg/dL LDL Cholesterol (30-100) mg/dL HDL Cholesterol (40-60) mg/dL Heart Disease Risk Ratio Urine Color (YELLOW) Urine Appearance (CLEAR) Urine pH (5-6) Ur Specific [place] (1.005-1.025) Urine Protein (Negative) Urine Ketones (NEGATIVE) Urine Blood (0-5) Sai/ul Urine Nitrite (NEGATIVE) Urine Bilirubin (NEGATIVE) Urine Urobilinogen (0-1) mg/dL Ur Leukocyte Esterase (NEGATIVE) Urine WBC (Auto) (0-5) /HPF Urine RBC (Auto) (0-2) /HPF U Epithel Cells (Auto) (FEW) /HPF Urine Bacteria (Auto) (NEGATIVE) /HPF Urine Mucus (Auto) (NEGATIVE) /HPF Urine Culture Reflexed (NO) Urine Glucose (NEGATIVE) mg/dL Influenza Type A Ag (NEGATIVE) Influenza Type B Ag (NEGATIVE) RSV (PCR) (Negative) 02/16/20 02/16/20 02/16/20 Range/Units 15:10 15:10 17:17 WBC (4.0-10.5) K/mm3 RBC (4.1-5.4) M/mm3 Hgb (12.0-16.0) gm/dl Hct (35-47) % MCV (78-100) fl MCH (26-32) pg MCHC (32-36) g/dl RDW (11.5-14.0) % Plt Count (150-450) K/mm3 MPV (7.5-11.0) fl Gran % (36.0-66.0) % Eos # (Auto) (0-0.5) Absolute Lymphs (auto) (1.0-4.6) Absolute Monos (auto) (0.0-1.3) Lymphocytes % (24.0-44.0) % Monocytes % (0.0-12.0) % Eosinophils % (0.00-5.0) % Basophils % (0.0-0.4) % Absolute Granulocytes (1.4-6.9) Basophils # (0-0.4) Sodium 140 (137-145) mmol/L Potassium 4.6 (3.5-5.1) mmol/L Chloride 102 (98-107) mmol/L Carbon Dioxide 26 (22-30) mmol/L Anion Gap 16.1 H (5-15) MEQ/L BUN 13 (7-17) mg/dL Creatinine 0.71 (0.52-1.04) mg/dL Estimated GFR > 60.0 ML/MIN Glucose 116 H (74-106) mg/dL Hemoglobin A1c (4.5-6.0) % Lactic Acid 2.7 H (0.4-2.0) Calcium 9.7 (8.4-10.2) mg/dL Magnesium 1.7 (1.6-2.3) mg/dL Total Bilirubin 0.60 (0.2-1.3) mg/dL AST 24 (14-36) U/L ALT 19 (0-35) U/L Alkaline Phosphatase 80 (38-126) U/L Troponin I (0.000-0.034) ng/mL NT-Pro-B Natriuret Pep 163 (0-900) pg/mL Serum Total Protein 7.4 (6.3-8.2) g/dL Albumin 4.4 (3.5-5.0) g/dL Triglycerides (30-150) mg/dL Cholesterol (50-200) mg/dL LDL Cholesterol (30-100) mg/dL HDL Cholesterol (40-60) mg/dL Heart Disease Risk Ratio Urine Color (YELLOW) Urine Appearance (CLEAR) Urine pH (5-6) Ur Specific [place] (1.005-1.025) Urine Protein (Negative) Urine Ketones (NEGATIVE) Urine Blood (0-5) Sai/ul Urine Nitrite (NEGATIVE) Urine Bilirubin (NEGATIVE) Urine Urobilinogen (0-1) mg/dL Ur Leukocyte Esterase (NEGATIVE) Urine WBC (Auto) (0-5) /HPF Urine RBC (Auto) (0-2) /HPF U Epithel Cells (Auto) (FEW) /HPF Urine Bacteria (Auto) (NEGATIVE) /HPF Urine Mucus (Auto) (NEGATIVE) /HPF Urine Culture Reflexed (NO) Urine Glucose (NEGATIVE) mg/dL Influenza Type A Ag NEGATIVE (NEGATIVE) Influenza Type B Ag NEGATIVE (NEGATIVE) RSV (PCR) NEGATIVE (Negative) 02/16/20 02/16/20 02/16/20 Range/Units 17:50 21:05 Unknown WBC (4.0-10.5) K/mm3 RBC (4.1-5.4) M/mm3 Hgb (12.0-16.0) gm/dl Hct (35-47) % MCV (78-100) fl MCH (26-32) pg MCHC (32-36) g/dl RDW (11.5-14.0) % Plt Count (150-450) K/mm3 MPV (7.5-11.0) fl Gran % (36.0-66.0) % Eos # (Auto) (0-0.5) Absolute Lymphs (auto) (1.0-4.6) Absolute Monos (auto) (0.0-1.3) Lymphocytes % (24.0-44.0) % Monocytes % (0.0-12.0) % Eosinophils % (0.00-5.0) % Basophils % (0.0-0.4) % Absolute Granulocytes (1.4-6.9) Basophils # (0-0.4) Sodium (137-145) mmol/L Potassium (3.5-5.1) mmol/L Chloride (98-107) mmol/L Carbon Dioxide (22-30) mmol/L Anion Gap (5-15) MEQ/L BUN (7-17) mg/dL Creatinine (0.52-1.04) mg/dL Estimated GFR ML/MIN Glucose (74-106) mg/dL Hemoglobin A1c (4.5-6.0) % Lactic Acid (0.4-2.0) Calcium (8.4-10.2) mg/dL Magnesium (1.6-2.3) mg/dL Total Bilirubin (0.2-1.3) mg/dL AST (14-36) U/L ALT (0-35) U/L Alkaline Phosphatase (38-126) U/L Troponin I < 0.012 < 0.012 (0.000-0.034) ng/mL NT-Pro-B Natriuret Pep (0-900) pg/mL Serum Total Protein (6.3-8.2) g/dL Albumin (3.5-5.0) g/dL Triglycerides (30-150) mg/dL Cholesterol (50-200) mg/dL LDL Cholesterol (30-100) mg/dL HDL Cholesterol (40-60) mg/dL Heart Disease Risk Ratio Urine Color YELLOW (YELLOW) Urine Appearance CLEAR (CLEAR) Urine pH 5.0 (5-6) Ur Specific [place] 1.017 (1.005-1.025) Urine Protein NEGATIVE (Negative) Urine Ketones NEGATIVE (NEGATIVE) Urine Blood NEGATIVE (0-5) Sai/ul Urine Nitrite NEGATIVE (NEGATIVE) Urine Bilirubin NEGATIVE (NEGATIVE) Urine Urobilinogen NEGATIVE (0-1) mg/dL Ur Leukocyte Esterase NEGATIVE (NEGATIVE) Urine WBC (Auto) NONE (0-5) /HPF Urine RBC (Auto) NONE (0-2) /HPF U Epithel Cells (Auto) NONE (FEW) /HPF Urine Bacteria (Auto) NONE (NEGATIVE) /HPF Urine Mucus (Auto) SLIGHT (NEGATIVE) /HPF Urine Culture Reflexed NO (NO) Urine Glucose NEGATIVE (NEGATIVE) mg/dL Influenza Type A Ag (NEGATIVE) Influenza Type B Ag (NEGATIVE) RSV (PCR) (Negative) 02/17/20 02/17/20 02/17/20 Range/Units 00:20 03:20 03:20 WBC (4.0-10.5) K/mm3 RBC (4.1-5.4) M/mm3 Hgb (12.0-16.0) gm/dl Hct (35-47) % MCV (78-100) fl MCH (26-32) pg MCHC (32-36) g/dl RDW (11.5-14.0) % Plt Count (150-450) K/mm3 MPV (7.5-11.0) fl Gran % (36.0-66.0) % Eos # (Auto) (0-0.5) Absolute Lymphs (auto) (1.0-4.6) Absolute Monos (auto) (0.0-1.3) Lymphocytes % (24.0-44.0) % Monocytes % (0.0-12.0) % Eosinophils % (0.00-5.0) % Basophils % (0.0-0.4) % Absolute Granulocytes (1.4-6.9) Basophils # (0-0.4) Sodium (137-145) mmol/L Potassium (3.5-5.1) mmol/L Chloride (98-107) mmol/L Carbon Dioxide (22-30) mmol/L Anion Gap (5-15) MEQ/L BUN (7-17) mg/dL Creatinine (0.52-1.04) mg/dL Estimated GFR ML/MIN Glucose (74-106) mg/dL Hemoglobin A1c (4.5-6.0) % Lactic Acid (0.4-2.0) Calcium (8.4-10.2) mg/dL Magnesium (1.6-2.3) mg/dL Total Bilirubin (0.2-1.3) mg/dL AST (14-36) U/L ALT (0-35) U/L Alkaline Phosphatase (38-126) U/L Troponin I < 0.012 < 0.012 (0.000-0.034) ng/mL NT-Pro-B Natriuret Pep (0-900) pg/mL Serum Total Protein (6.3-8.2) g/dL Albumin (3.5-5.0) g/dL Triglycerides 157 H (30-150) mg/dL Cholesterol 132 (50-200) mg/dL LDL Cholesterol 74 (30-100) mg/dL HDL Cholesterol 48 (40-60) mg/dL Heart Disease Risk Ratio 2.7 Urine Color (YELLOW) Urine Appearance (CLEAR) Urine pH (5-6) Ur Specific [place] (1.005-1.025) Urine Protein (Negative) Urine Ketones (NEGATIVE) Urine Blood (0-5) Sai/ul Urine Nitrite (NEGATIVE) Urine Bilirubin (NEGATIVE) Urine Urobilinogen (0-1) mg/dL Ur Leukocyte Esterase (NEGATIVE) Urine WBC (Auto) (0-5) /HPF Urine RBC (Auto) (0-2) /HPF U Epithel Cells (Auto) (FEW) /HPF Urine Bacteria (Auto) (NEGATIVE) /HPF Urine Mucus (Auto) (NEGATIVE) /HPF Urine Culture Reflexed (NO) Urine Glucose (NEGATIVE) mg/dL Influenza Type A Ag (NEGATIVE) Influenza Type B Ag (NEGATIVE) RSV (PCR) (Negative) 02/17/20 Range/Units 09:00 WBC (4.0-10.5) K/mm3 RBC (4.1-5.4) M/mm3 Hgb (12.0-16.0) gm/dl Hct (35-47) % MCV (78-100) fl MCH (26-32) pg MCHC (32-36) g/dl RDW (11.5-14.0) % Plt Count (150-450) K/mm3 MPV (7.5-11.0) fl Gran % (36.0-66.0) % Eos # (Auto) (0-0.5) Absolute Lymphs (auto) (1.0-4.6) Absolute Monos (auto) (0.0-1.3) Lymphocytes % (24.0-44.0) % Monocytes % (0.0-12.0) % Eosinophils % (0.00-5.0) % Basophils % (0.0-0.4) % Absolute Granulocytes (1.4-6.9) Basophils # (0-0.4) Sodium (137-145) mmol/L Potassium (3.5-5.1) mmol/L Chloride (98-107) mmol/L Carbon Dioxide (22-30) mmol/L Anion Gap (5-15) MEQ/L BUN (7-17) mg/dL Creatinine (0.52-1.04) mg/dL Estimated GFR ML/MIN Glucose (74-106) mg/dL Hemoglobin A1c 7.04 H (4.5-6.0) % Lactic Acid (0.4-2.0) Calcium (8.4-10.2) mg/dL Magnesium (1.6-2.3) mg/dL Total Bilirubin (0.2-1.3) mg/dL AST (14-36) U/L ALT (0-35) U/L Alkaline Phosphatase (38-126) U/L Troponin I (0.000-0.034) ng/mL NT-Pro-B Natriuret Pep (0-900) pg/mL Serum Total Protein (6.3-8.2) g/dL Albumin (3.5-5.0) g/dL Triglycerides (30-150) mg/dL Cholesterol (50-200) mg/dL LDL Cholesterol (30-100) mg/dL HDL Cholesterol (40-60) mg/dL Heart Disease Risk Ratio Urine Color (YELLOW) Urine Appearance (CLEAR) Urine pH (5-6) Ur Specific [place] (1.005-1.025) Urine Protein (Negative) Urine Ketones (NEGATIVE) Urine Blood (0-5) Sai/ul Urine Nitrite (NEGATIVE) Urine Bilirubin (NEGATIVE) Urine Urobilinogen (0-1) mg/dL Ur Leukocyte Esterase (NEGATIVE) Urine WBC (Auto) (0-5) /HPF Urine RBC (Auto) (0-2) /HPF U Epithel Cells (Auto) (FEW) /HPF Urine Bacteria (Auto) (NEGATIVE) /HPF Urine Mucus (Auto) (NEGATIVE) /HPF Urine Culture Reflexed (NO) Urine Glucose (NEGATIVE) mg/dL Influenza Type A Ag (NEGATIVE) Influenza Type B Ag (NEGATIVE) RSV (PCR) (Negative) Micro Results-Entire Visit: Accuchecks Date 02/17/20 Date 02/17/20 Date 02/16/20 Time 11:30 Time 07:22 Time 21:00 Accucheck Value: 86 Accucheck Value: 115 Accucheck Value: 110 Accucheck Value: 119 - Radiology Exams Ordered Rad Exams-Entire Visit: Radiology Procedures Category Date Time Status CHEST 1 VIEW (PORTABLE) Stat Exams 02/16/20 14:57 Completed - Procedures and Test Procedures and Tests throughout Hospitalization: Therapy Orders & Screens 02/16/20 17:21 EKG Q8HX2,QAMX3,PRN Comment: 02/16/20 17:53 Oxygen NASAL CANNULA 2 lpm Comment: Diagnosis: Acute Coronary Syndrome 02/16/20 18:12 RT Screen per Nursing Assess ONCE Comment: Protocol Order Physician Instructions: Greater than 3 points order RT Admission Screen Reason For Exam: Triggered on Admission Diagnosis: Acute Coronary Syndrome Diagnosis: Acute Coronary Syndrome Pneumonia: No Home O2: Yes Asthma: No CHF: No Home CPAP/BIPAP: No Home Nebs/MDI: Yes Total Points: 10 Smoking Cessation Education ONCE Comment: Diagnosis: Acute Coronary Syndrome Smoking Status: Current some day smoker How long have you smoked: 30+ YEARS Have you smoked in the past 12 months: Yes Approximately how many cigarettes per day: 10 Do you dip or chew tobacco: No If,Former Smoker,when did you quit: 1 month 02/16/20 22:55 EKG ONCE Comment: Diagnosis: Acute Coronary Syndrome 02/17/20 05:00 EKG ONCE Comment: Diagnosis: Acute Coronary Syndrome 02/18/20 05:00 EKG ONCE Comment: Diagnosis: Acute Coronary Syndrome 02/19/20 05:00 EKG ONCE Comment: Diagnosis: Acute Coronary Syndrome Final Diagnosis/Problem List - Final Discharge Diagnosis/Problem (1) Chest pain, rule out acute myocardial infarction Current Visit: No Status: Acute Assessment & Plan: Trops were neg x3. Ekg did not demonstrate stemi. Patient does have risk factors for SD including hx of bypass and stent placement cad diabetes and HTN. Patient sees Dr Sousa and spoke with him three weeks ago when she was having chest pain. Patient reports that he wanted her to have nuc med stress test and repeat echo. Discussed with Dr Sousa plan for changing some of patient's bp meds. Patient will be discharged to follow up with Dr Sousa Code(s): R07.9 - CHEST PAIN, UNSPECIFIED (2) Acute coronary syndrome Current Visit: Yes Status: Acute Assessment & Plan: Same plan as above. Code(s): I24.9 - ACUTE ISCHEMIC HEART DISEASE, UNSPECIFIED (3) COPD exacerbation Current Visit: Yes Status: Acute Assessment & Plan: Patient has hx of COPD. She is on 2L of oxygen baseline however when she started having chest pressure she developed SOB and had to increase her oxygen to 3L until she got to the hospital. Patient will need nebulizer machine at home and will need to do breathing treatments for 3 days following DC. Patient will also be started on steroids and azith. Code(s): J44.1 - CHRONIC OBSTRUCTIVE PULMONARY DISEASE W (ACUTE) EXACERBATION (4) Angina pectoris Current Visit: No Status: Acute Assessment & Plan: Patient was having chest pressure/pain. Patient reports that it was relieved by nitro when she got to ER. Code(s): I20.9 - ANGINA PECTORIS, UNSPECIFIED (5) Diabetes Current Visit: No Status: Acute Assessment & Plan: Patient will be discharged on routine home meds. Code(s): E11.9 - TYPE 2 DIABETES MELLITUS WITHOUT COMPLICATIONS - Discharge Disposition: Home, Self-Care Condition: Fair Prescriptions: No Action [place]-3S/Dha/Epa/Fish Oil [Fish Oil EC 1,200 mg Softgel] 2 ea PO DAILY Hydrocodone Bit/Acetaminophen [[place] 10-325 Tablet] 1 ea PO QID PRN PRN PRN Reason: Pain Ferrous Sulfate 325 mg [Feosol 325 mg] 325 mg PO DAILY Magnesium Oxide 400 mg [Mag-Ox 400] 400 mg PO BID Nitroglycerin 0.4 mg SL UD Metformin HCl 500 mg [Glucophage 500 MG] 1,000 mg PO DAILY Pantoprazole Sodium [Protonix] 40 mg PO DAILY Atorvastatin Calcium [Lipitor 40Mg] 80 mg PO HS Metoprolol Tartrate 25 mg [Lopressor 25MG Tab] 50 mg PO BID Clopidogrel Bisulfate 75 mg [PLAVIX 75 MG Tablet] 75 mg PO DAILY Ipratropium/Albuterol Sulfate [Iprat-Albut 0.5-3(2.5) mg/3 ml] 3 ml IH TID PRN PRN Reason: sob Cyanocobalamin (Vitamin B-12) [Vitamin B-12] 1,000 mcg PO DAILY Aspirin 81 gm Chew [Baby Aspirin 81 mg Chew] 81 mg PO DAILY Gabapentin [Neurontin] 800 mg PO TID ALPRAZolam [Xanax 0.5 mg] 0.5 mg PO Q4H PRN PRN PRN Reason: Anxiety Ranolazine [Ranexa] 1,000 mg PO BID Isosorbide Mononitrate 60 mg [Imdur 60MG] 90 mg PO DAILY Varenicline Tartrate [Chantix] 1 mg PO BID Insulin Glargine,Hum.rec.anlog [Toujeo Max Solostar] 60 unit SQ DAILY Oxybutynin Chloride 5 mg PO BID Insulin Lispro [Humalog] 30 unit SQ BID Ezetimibe 10 mg [Zetia 10 MG] 10 mg PO DAILY Instructions: Chest Pain, Exacerbation of COPD (DC) Additional Instructions: Patient will follow have a Telecardiology appt with 's Nurse Practioner (Solomon) on February @ 11:15 a.m. Patient will still keep appt with for February @10:30 a.m. for results of her echo and lexipet that was scheduled to be done prior to this admission. Follow up with: VICKY GUTIERREZ MD [Primary Care Provider] - 02/28/20 10:15 am FIONA SOUSA [CONSULTING PHYSICIAN] - 02/24/20 11:15 am
[2020-02-17 14:21] VITALS: BP 128/57; PULSE 58
[2020-02-17] MEDS ORDERED: ZOCOR 20MG PO SCH (22:00)
== END 2020-02-17 14:50 | disposition home or self-care (01) ==
LOC: ED 14:52 → MED SURG 17:15
PROVIDERS: ADMIT Family Medicine; ATTEND Family Medicine
DX: R07.9 Chest pain, unspecified (principal); I24.9 Acute ischemic heart disease, unspecified; J44.1 Chronic obstructive pulmonary disease with (acute) exacerbation; E11.9 Type 2 diabetes mellitus without complications; E78.00 Pure hypercholesterolemia, unspecified; I25.10 Atherosclerotic heart disease of native coronary artery without angina pectoris; M25.562 Pain in left knee; F41.9 Anxiety disorder, unspecified; Z79.01 Long term (current) use of anticoagulants; Z79.899 Other long term (current) drug therapy; Z99.81 Dependence on supplemental oxygen; I25.2 Old myocardial infarction
CPT/HCPCS: 36000; 36415; 71045; 80053; 80061; 81001; 82962; 83036; 83605; 83721; 83735; 83880; 84484; 85025; 87040; 87631; 93005; 93041; 93268; 94760; 99285; G0378; A9270-GY

== ENCOUNTER 2020-03-21 12:55 | Emergency (ER) | payer MEDICARE ==
[2020-03-21] MEDS ORDERED: BABY ASPIRIN 81 MG CHEW PO ONE (13:05)
--- NOTE | 2020-03-21 13:07 | ERPHSYRPT ---
- History of Present Illness Time Seen by Provider: 03/21/20 13:07 Historian: patient, EMS Patient Subjective Stated Complaint: Pt states "I was standing there cutting up chicken and I got dizzy and my chest started to have some pressure on it. I felt like I couldnt breath. I took one of my own nitro and called the ambulance." Triage Nursing Assessment: Pt presented alert and oriented X 3, skin pwd Pt ambulates with an upright steady gait, able to speak in clear full sentences pt in no apparent respiratory distress. Physician History: This is an obese 54-year-old white female who has a history of coronary artery disease, hypertension, diabetes and has had a CABG in the past who presents with chest pressure. It is nonradiating and centrally located. Patient was cutting chicken in her kitchen when she felt the pressure and felt a little dizzy as well. Patient took a nitroglycerin. She called EMS. EMS arrived and gave the patient 2 nitroglycerin in route to our facility. Patient took all her medications this morning. This included 324 baby aspirin and her metoprolol. Patient's description of the pain was at a level 5 out of 10. Patient arrives to the emergency department with a 1 out of 10 pain/pressure complaint. She is mildly short of breath. She has had no fever. She has no nausea vomiting or diarrhea. Patient's urogynecology physician is Dr. Sousa. Patient is taking Plavix daily. Timing/Duration: today, other (Near completely resolved prior to her arrival) Quality: pressure Location: substernal, central Chest Pain Radiation: no radiation Severity of Pain-Max: moderate Severity of Pain-Current: mild Associated Symptoms: shortness of breath, dizziness, No nausea, No vomiting, No fever, No headache Prior Chest Pain/Cardiac Workup: cardiac cath, heart attack Nitro Today/Relief: provided by EMS, provided at home (Patient took 1 nitroglycerin sublingually at home and tomorrow provided by EMS), complete relief (Near complete) Aspirin Treatment Today: 325 mg x 1, provided at home Allergies/Adverse Reactions: No Known Drug Allergies Allergy (Verified 02/16/20 15:16) Home Medications: Atorvastatin Calcium [Lipitor 40Mg] 80 mg PO HS 04/17/15 [History] Clopidogrel Bisulfate 75 mg [PLAVIX 75 MG Tablet] 75 mg PO DAILY 04/17/15 [History] Ferrous Sulfate 325 mg [Feosol 325 mg] 325 mg PO DAILY 04/17/15 [History] Hydrocodone Bit/Acetaminophen [[place] 10-325 Tablet] 1 ea PO QID PRN PRN [History] Magnesium Oxide 400 mg [Mag-Ox 400] 400 mg PO BID 04/17/15 [History] Metformin HCl 500 mg [Glucophage 500 MG] 1,000 mg PO DAILY 04/17/15 [ History] Nitroglycerin 0.4 mg SL UD 04/17/15 [History] [place]-3S/Dha/Epa/Fish Oil [Fish Oil EC 1,200 mg Softgel] 2 ea PO DAILY 04/17/15 [History] Pantoprazole Sodium [Protonix] 40 mg PO DAILY 04/17/15 [History] ALPRAZolam [Xanax 0.5 mg] 0.5 mg PO Q4H PRN PRN 05/30/15 [History] Aspirin 81 gm Chew [Baby Aspirin 81 mg Chew] 81 mg PO DAILY 05/30/15 [ History] Cyanocobalamin (Vitamin B-12) [Vitamin B-12] 1,000 mcg PO DAILY 05/30/15 [ History] Gabapentin [Neurontin] 800 mg PO TID 05/30/15 [History] Ipratropium/Albuterol Sulfate [Iprat-Albut 0.5-3(2.5) mg/3 ml] 3 ml IH TID PRN 05/30/15 [History] Isosorbide Mononitrate 60 mg [Imdur 60MG] 90 mg PO DAILY 07/05/15 [History] Ranolazine [Ranexa] 1,000 mg PO BID 07/05/15 [History] Insulin Glargine,Hum.rec.anlog [Toujayden Dong Solostar] 60 unit SQ DAILY 01/05/19 [ History] Insulin Lispro [Humalog] 30 unit SQ BID 01/05/19 [History] Oxybutynin Chloride 5 mg PO BID 01/05/19 [History] Ezetimibe 10 mg [Zetia 10 MG] 10 mg PO DAILY 06/12/19 [History] Hx Tetanus, Diphtheria Vaccination/Date Given: Yes Hx Influenza Vaccination/Date Given: Yes Hx Pneumococcal Vaccination/Date Given: Yes Immunizations Up to Date: Yes Travel Risk - International Travel Have you traveled outside of the country in past 3 weeks: No - Coronavirus Screening Are you exhibiting any of the following symptoms?: No Close contact with a COVID-19 positive Pt in past 14-21 Days: No - Review of Systems Constitutional: No Symptoms Eyes: No Symptoms Ears, Nose, & Throat: No Symptoms Respiratory: Dyspnea Cardiac: Chest Pain Abdominal/Gastrointestinal: No Symptoms Genitourinary Symptoms: No Symptoms Musculoskeletal: No Symptoms Skin: No Symptoms Neurological: No Symptoms Psychological: No Symptoms Endocrine: No Symptoms Hematologic/Lymphatic: No Symptoms Immunological/Allergic: No Symptoms All Other Systems: Reviewed and Negative - Past Medical History Pertinent Past Medical History: Yes Neurological History: Peripheral Neuropathy ENT History: No Pertinent History Cardiac History: Coronary Artery Disease, High Cholesterol, Hypertension, Myocardial Infarction (OK) Respiratory History: COPD, Sleep Apnea, Other Endocrine Medical History: Diabetes Type II Musculoskeletal History: No Pertinent History GI Medical History: GERD, Other History: No Pertinent History Psycho-Social History: Anxiety, Depression Female Reproductive Disorders: No Pertinent History Other Medical History: hiatal hernia - Past Surgical History Past Surgical History: Yes Neuro Surgical History: No Pertinent History Cardiac: CABG, Cardiac Catheterization, Cardiac Stent Respiratory: No Pertinent History Gastrointestinal: No Pertinent History Genitourinary: No Pertinent History Musculoskeletal: Orthopedic Surgery Female Surgical History: No Pertinent History Other Surgical History: NECK SURG. C5-7 disc replaced and plate placed and left ankle stabilization and wire placed,. CABG x 4 vessels. Cardiac stents x 2. Follows Dr. Sousa every 6 months - Social History Smoking Status: Current every day smoker How long have you smoked: years Exposure to second hand smoke: Yes Drug Use: none Patient Lives Alone: Yes - Female History Hx Now: No - Nursing Vital Signs Nursing Vital Signs: Initial Vital Signs Temperature 97.9 F 03/21/20 12:57 Pulse Rate 70 03/21/20 12:57 Respiratory Rate 03/21/20 12:57 Blood Pressure 135/70 03/21/20 12:57 O2 Sat by Pulse Oximetry 94 L 03/21/20 12:57 Pain Scale Pain Intensity 0 - Physical Exam General Appearance: mild distress, alert, anxiety, obese Eye Exam: PERRL/EOMI, eyes nml inspection Ears, Nose, Throat Exam: normal ENT inspection, moist mucous membranes Neck Exam: normal inspection, non-tender, supple, full range of motion Respiratory Exam: normal breath sounds, chest tenderness, lungs clear, airway intact, No respiratory distress Cardiovascular Exam: regular rate/rhythm, normal heart sounds, normal peripheral pulses Gastrointestinal/Abdomen Exam: soft, normal bowel sounds, No tenderness Pelvic Exam: not done Rectal Exam: not done Back Exam: normal inspection, normal range of motion, No CVA tenderness, No vertebral tenderness Extremity Exam: normal inspection, normal range of motion, pelvis stable Neurologic Exam: alert, oriented x 3, cooperative, staff respiratory therapist II-XII nml as tested Skin Exam: normal color, warm, dry Lymphatic Exam: No adenopathy SpO2 Interpretation: borderline oxygenation SpO2: 94 O2 Delivery: Room Air - Course Nursing assessment & vital signs reviewed: Yes EKG Interpreted by Me: RATE (65), Sinus Rhythm, NORMAL AXIS, NORMAL INTERVALS, Right Bundle Branch Block, Other (Comparison EKG dated 02/16/2020 there is no significant changes when the compare EKGs. There are no acute ischemic changes appreciated on today's EKG) Ordered Tests: Active Orders 24 hr Category Date Time Status Hay Sorter STAT Care 03/21/20 13:06 Active EKG-ER Only STAT Care 03/21/20 13:05 Active IV Insertion STAT Care 03/21/20 13:05 Active CHEST 1 VIEW (PORTABLE) Stat Exams 03/21/20 13:06 Completed CBC W DIFF Stat Lab 03/21/20 13:19 Completed CMP Stat Lab 03/21/20 13:19 Completed D-DIMER QUANTITATIVE Stat Lab 03/21/20 13:19 Completed NT PRO BNP Stat Lab 03/21/20 13:19 Completed PROTIME WITH INR Stat Lab 03/21/20 13:19 Completed TROPONIN Q3H Lab 03/21/20 13:19 Completed TROPONIN Q3H Lab 03/21/20 16:45 Completed TROPONIN Q3H Lab 03/21/20 19:15 Ordered TROPONIN Q3H Lab 03/21/20 22:15 Ordered TROPONIN Q3H Lab 03/22/20 01:15 Ordered Medication Summary Generic Name Dose Route Start Last Admin Trade Name Freq PRN Reason Stop Dose Admin Sodium Chloride 1,000 mls @ 100 mls/hr 03/21/20 13:15 03/21/20 13:16 Sodium Chloride 0.9% 1000 Ml IV 04/20/20 13:14 100 mls/hr .Q10H CIERRA Administration Discontinued Medications Generic Name Dose Route Start Last Admin Trade Name Douglas PRN Reason Stop Dose Admin Aspirin 324 mg 03/21/20 13:05 03/21/20 13:21 Baby Aspirin 81 Mg Chew PO 03/21/20 13:06 Not Given STAT ONE Lorazepam 0.5 mg 03/21/20 13:11 03/21/20 13:15 Ativan 2 Mg/1 Ml Vial IV 03/21/20 13:12 0.5 mg STAT ONE Administration Lorazepam Confirm 03/21/20 13:14 Ativan 2 Mg/1 Ml Vial Administered 03/21/20 13:15 Dose 2 mg .ROUTE .STK-MED ONE Lab/Rad Data: Laboratory Result Diagrams 03/21/20 13:19 03/21/20 13:19 Laboratory Results 03/21/20 03/21/20 03/21/20 Range/Units 16:45 13:19 13:19 WBC (4.0-10.5) K/mm3 RBC (4.1-5.4) M/mm3 Hgb (12.0-16.0) gm/dl Hct (35-47) % MCV (78-100) fl MCH (26-32) pg MCHC (32-36) g/dl RDW (11.5-14.0) % Plt Count (150-450) K/mm3 MPV (7.5-11.0) fl Gran % (36.0-66.0) % Eos # (Auto) (0-0.5) Absolute Lymphs (auto) (1.0-4.6) Absolute Monos (auto) (0.0-1.3) Lymphocytes % (24.0-44.0) % Monocytes % (0.0-12.0) % Eosinophils % (0.00-5.0) % Basophils % (0.0-0.4) % Absolute Granulocytes (1.4-6.9) Basophils # (0-0.4) PT 11.9 (9.95-12.35) SECONDS INR 1.05 (0.8-3.0) D-Dimer 223 (215-500) ng/mL Sodium (137-145) mmol/L Potassium (3.5-5.1) mmol/L Chloride (98-107) mmol/L Carbon Dioxide (22-30) mmol/L Anion Gap (5-15) MEQ/L BUN (7-17) mg/dL Creatinine (0.52-1.04) mg/dL Estimated GFR ML/MIN Glucose (74-106) mg/dL Calcium (8.4-10.2) mg/dL Total Bilirubin (0.2-1.3) mg/dL AST (14-36) U/L ALT (0-35) U/L Alkaline Phosphatase (38-126) U/L Troponin I < 0.012 < 0.012 (0.000-0.034) ng/mL NT-Pro-B Natriuret Pep (0-900) pg/mL Serum Total Protein (6.3-8.2) g/dL Albumin (3.5-5.0) g/dL 03/21/20 03/21/20 Range/Units 13:19 13:19 WBC 7.5 (4.0-10.5) K/mm3 RBC 4.32 (4.1-5.4) M/mm3 Hgb 13.0 (12.0-16.0) gm/dl Hct 40.0 (35-47) % MCV 92.6 (78-100) fl MCH 30.1 (26-32) pg MCHC 32.5 (32-36) g/dl RDW 14.3 H (11.5-14.0) % Plt Count 261 (150-450) K/mm3 MPV 10.2 (7.5-11.0) fl Gran % 50.2 (36.0-66.0) % Eos # (Auto) 0.43 (0-0.5) Absolute Lymphs (auto) 2.62 (1.0-4.6) Absolute Monos (auto) 0.67 (0.0-1.3) Lymphocytes % 34.7 (24.0-44.0) % Monocytes % 8.9 (0.0-12.0) % Eosinophils % 5.7 H (0.00-5.0) % Basophils % 0.5 (0.0-0.4) % Absolute Granulocytes 3.78 (1.4-6.9) Basophils # 0.04 (0-0.4) PT (9.95-12.35) SECONDS INR (0.8-3.0) D-Dimer (215-500) ng/mL Sodium 138 (137-145) mmol/L Potassium 4.4 (3.5-5.1) mmol/L Chloride 102 (98-107) mmol/L Carbon Dioxide 23 (22-30) mmol/L Anion Gap 17.1 H (5-15) MEQ/L BUN 11 (7-17) mg/dL Creatinine 0.68 (0.52-1.04) mg/dL Estimated GFR > 60.0 ML/MIN Glucose 146 H (74-106) mg/dL Calcium 9.5 (8.4-10.2) mg/dL Total Bilirubin 0.50 (0.2-1.3) mg/dL AST 22 (14-36) U/L ALT 20 (0-35) U/L Alkaline Phosphatase 74 (38-126) U/L Troponin I (0.000-0.034) ng/mL NT-Pro-B Natriuret Pep 72.9 (0-900) pg/mL Serum Total Protein 7.1 (6.3-8.2) g/dL Albumin 4.4 (3.5-5.0) g/dL - Progress Progress: improved, re-examined Air Movement: good Progress Note: 03/21/20 15:54 Chest x-ray shows no acute process Patient reexamined. Her chest pain has resolved. She has no shortness of breath. 03/21/20 16:43 Patient reexamined. Patient states her chest pain and shortness of breath has resolved completely. We are awaiting the 3-hour troponin level. 03/21/20 17:24 Patient was reexamined. Patient has no chest pain and is not short of breath Blood Culture(s) Obtained: No Antibiotics given: No Counseled pt/family regarding: lab results, diagnosis, need for follow-up, rad results - Departure Departure Disposition: Home Clinical Impression: Chest pain Condition: Stable Critical Care Time: No Referrals: VICKY GUTIERREZ MD [Primary Care Provider] - Additional Instructions: Take your medications as prescribed. Follow-up with your urogynecology physician tomorrow to make arrangements for a follow-up appointment. Return to the emergency department if your symptoms recur
[2020-03-21] MEDS ORDERED: Ativan 2 MG/1 ML VIAL IV ONE (13:11)
[2020-03-21] MEDS ORDERED: Ativan 2 MG/1 ML VIAL ONE (13:14)
[2020-03-21] MEDS ORDERED: Sodium Chloride 0.9% 1000 ML 1,000 ML ONE (13:14)
[2020-03-21] MEDS ORDERED: Sodium Chloride 0.9% 1000 ML 1,000 ML IV SCH (13:15)
[2020-03-21 13:21] LABS: Absolute Neutrophil Ct (ANC) 3.78 (1.4-6.9); BASOPHIL % 0.5 % (0.0-0.4); Basophil (Absolute #) 0.04 (0-0.4); Eosinophil % 5.7 % (0.00-5.0); Eosinophil (Absolute #) 0.43 (0-0.5); Lymphocyte (Absolute #) 2.62 (1.0-4.6); Lymphocytes % 34.7 % (24.0-44.0); Mean Cell Volume 92.6 fl (78-100); Mean Corpuscular Hemoglobin 30.1 pg (26-32); Mean Corpuscular Hgb Concent. 32.5 g/dl (32-36); Mean Platelet Volume 10.2 fl (7.5-11.0); Monocyte (Absolute #) 0.67 (0.0-1.3); Monocytes % 8.9 % (0.0-12.0); Neutrophil % 50.2 % (36.0-66.0); Platelet Count 261 K/mm3 (150-450); Red Blood Count 4.32 M/mm3 (4.1-5.4); Red Cell Distribution Width 14.3 % (11.5-14.0); White Blood Count 7.5 K/mm3 (4.0-10.5)
[2020-03-21 13:27] LABS: INR 1.05 (0.8-3.0); PROTIME 11.9 SECONDS (9.95-12.35)
--- NOTE | 2020-03-21 13:35 | XRAY ---
Indication: Chest pain/pressure. Comparison: February 25, 2020. Portable chest demonstrates new minimal right base fibrosis/scarring. Remaining heart and lungs unremarkable with CABG surgery. Bony thorax intact again with mild degenerative changes and lower cervical fusion surgery. Impression: Nonacute chest with chronic features.
[2020-03-21 13:41] LABS: ALBUMIN 4.4 g/dL (3.5-5.0); ALKALINE PHOSPHATASE 74 U/L (38-126); ANION GAP 17.1 MEQ/L (5-15); BLOOD UREA NITROGEN 11 mg/dL (7-17); CHLORIDE 102 mmol/L (98-107); Calcium 9.5 mg/dL (8.4-10.2); Carbon Dioxide 23 mmol/L (22-30); Creatinine 1 0.68 mg/dL (0.52-1.04); Glucose 146 mg/dL (74-106); NT PRO BNP 72.9 pg/mL (0-900); Potassium 4.4 mmol/L (3.5-5.1); SGOT/AST 22 U/L (14-36); SGPT/ALT 20 U/L (0-35); SODIUM 138 mmol/L (137-145); Total Protein 7.1 g/dL (6.3-8.2)
[2020-03-21 17:17] VITALS: BP 90/54; PULSE 58
[2020-03-21 17:26] VITALS: O2SAT 94
== END 2020-03-21 17:42 | disposition home or self-care (01) ==
LOC: ED 12:55
DX: R07.89 Other chest pain (principal); I25.10 Atherosclerotic heart disease of native coronary artery without angina pectoris; I10 Essential (primary) hypertension; E11.9 Type 2 diabetes mellitus without complications; Z95.1 Presence of aortocoronary bypass graft; R42 Dizziness and giddiness; Z79.899 Other long term (current) drug therapy; Z79.01 Long term (current) use of anticoagulants; Z79.891 Long term (current) use of opiate analgesic
CPT/HCPCS: 36000; 36415; 71045; 80053; 83880; 84484; 85025; 85379; 85610; 93005; 93041; 96360; 96361; 96374; 99285; J2060

== ENCOUNTER 2021-04-22 18:27 | Observation (INO) | payer MEDICARE ==
--- NOTE | 2021-04-22 18:57 | ERPHSYRPT ---
- History of Present Illness Time Seen by Provider: 04/22/21 18:35 Source: patient Exam Limitations: no limitations Patient Subjective Stated Complaint: Pt states "I am tired. I am a little short of breath but I am just tired." Triage Nursing Assessment: Pt presented alert and oriented X 3, skin pwd pt ambulates with an upright steady gait, able to speak in clear full sentences. PT resting comfortably will occasionally sigh and lay back. Physician History: 55 years old female with history of coronary artery disease status post CABG/stenting, COPD, 2 L oxygen at nighttime, diabetes mellitus, hypertension presented in the ER with chief complaint of generalized weakness fatigue and tiredness with increasing shortness of breath for the last 2 to 3 days. Patient reports normally she uses oxygen at nighttime but for the last couple of days she has been using it all the time as it is helping her to breathe better. She feels drained with lack of energy to do her routine activities. Denies any chest pain or palpitations. Denies any fever chills cough. Denies any sick contact. Did receive Covid vaccine. Timing/Duration: day(s) (3), constant, gradual onset, worse Activities at Onset: activity Severity of Dyspnea-Max: moderate Severity of Dyspnea-Current: moderate Modifying Factors: Improves With: oxygen. Worsens With: activity Associated Symptoms: loss of appetite, weakness, No cough, No chest pain/discomfort, No muscle spasms hands, No painful breathing, No productive cough Allergies/Adverse Reactions: No Known Drug Allergies Allergy (Verified 02/16/20 15:16) Home Medications: Atorvastatin Calcium [Lipitor 40Mg] 80 mg PO HS 04/17/15 [History] Clopidogrel Bisulfate 75 mg [PLAVIX 75 MG Tablet] 75 mg PO DAILY 04/17/15 [History] Ferrous Sulfate 325 mg [Feosol 325 mg] 325 mg PO DAILY 04/17/15 [History] Hydrocodone Bit/Acetaminophen [[place] 10-325 Tablet] 1 ea PO QID PRN PRN 04/17/15 [History] Magnesium Oxide 400 mg [Mag-Ox 400] 400 mg PO BID 04/17/15 [History] Metformin HCl 500 mg [Glucophage 500 MG] 1,000 mg PO DAILY 04/17/15 [History] Nitroglycerin 0.4 mg SL UD 04/17/15 [History] [place]-3S/Dha/Epa/Fish Oil [Fish Oil EC 1,200 mg Softgel] 2 ea PO DAILY 04/17/15 [History] Pantoprazole Sodium [Protonix] 40 mg PO DAILY 04/17/15 [History] ALPRAZolam [Xanax 0.5 mg] 0.5 mg PO Q4H PRN PRN 05/30/15 [History] Aspirin 81 gm Chew [Baby Aspirin 81 mg Chew] 81 mg PO DAILY 05/30/15 [History] Cyanocobalamin (Vitamin B-12) [Vitamin B-12] 1,000 mcg PO DAILY 05/30/15 [History] Gabapentin [Neurontin] 800 mg PO TID 05/30/15 [History] Ipratropium/Albuterol Sulfate [Iprat-Albut 0.5-3(2.5) mg/3 ml] 3 ml IH TID PRN 05/30/15 [History] Isosorbide Mononitrate 60 mg [Imdur 60MG] 90 mg PO DAILY 07/05/15 [History] Ranolazine [Ranexa] 1,000 mg PO BID 07/05/15 [History] Insulin Glargine,Hum.rec.anlog [[place] Max Solostar] 60 unit SQ DAILY 01/05/19 [History] Insulin Lispro [Humalog] 30 unit SQ BID 01/05/19 [History] Oxybutynin Chloride 5 mg PO BID 01/05/19 [History] Ezetimibe 10 mg [Zetia 10 MG] 10 mg PO DAILY 03/24/19 [History] Hx Tetanus, Diphtheria Vaccination/Date Given: No Hx Influenza Vaccination/Date Given: Yes Hx Pneumococcal Vaccination/Date Given: Yes Immunizations Up to Date: Yes Travel Risk - International Travel Have you traveled outside of the country in past 3 weeks: No - Coronavirus Screening Are you exhibiting any of the following symptoms?: No Close contact with a COVID-19 positive Pt in past 14-21 Days: No - Vaccine Status Have you recieved a Covid-19 vaccination: Yes Medical Lab Assistant: [employer] - Vaccination Dates Date of 2cond Vaccination (if applicable): 01/2021 - Review of Systems Constitutional: Fatigue, Weakness Eyes: No Symptoms Ears, Nose, & Throat: No Symptoms Respiratory: Dyspnea, Dyspnea on Exertion (LUJAN) Cardiac: No Symptoms Abdominal/Gastrointestinal: No Symptoms Genitourinary Symptoms: No Symptoms Musculoskeletal: No Symptoms Skin: No Symptoms Neurological: No Symptoms Psychological: No Symptoms Endocrine: No Symptoms Hematologic/Lymphatic: No Symptoms Immunological/Allergic: No Symptoms - Past Medical History Pertinent Past Medical History: Yes Neurological History: Peripheral Neuropathy ENT History: No Pertinent History Cardiac History: Coronary Artery Disease, High Cholesterol, Hypertension, Myoc ardial Infarction (ME) Respiratory History: COPD, Sleep Apnea, Other Endocrine Medical History: Diabetes Type II Musculoskeletal History: No Pertinent History GI Medical History: GERD, Other History: No Pertinent History Psycho-Social History: Anxiety, Depression Female Reproductive Disorders: No Pertinent History Other Medical History: hiatal hernia - Past Surgical History Past Surgical History: Yes Neuro Surgical History: No Pertinent History Cardiac: CABG, Cardiac Catheterization, Cardiac Stent Respiratory: No Pertinent History Gastrointestinal: No Pertinent History Genitourinary: No Pertinent History Musculoskeletal: Orthopedic Surgery Female Surgical History: No Pertinent History Other Surgical History: NECK SURG. C5-7 disc replaced and plate placed and left ankle stabilization and wire placed,. CABG x 4 vessels. Cardiac stents x 2. Follows Dr. Sousa every 6 months - Social History Smoking Status: Former smoker How long have you smoked: years Exposure to second hand smoke: No Drug Use: none Patient Lives Alone: Yes - Female History Hx Now: No - Nursing Vital Signs Nursing Vital Signs: Initial Vital Signs Temperature 96.9 F 04/22/21 18:27 Pulse Rate 68 04/22/21 18:27 Respiratory Rate 22 04/22/21 18:27 Blood Pressure 159/64 04/22/21 18:27 O2 Sat by Pulse Oximetry 96 04/22/21 18:27 Pain Scale Pain Intensity 0 - Physical Exam General Appearance: no apparent distress, alert Eye Exam: PERRL/EOMI, eyes nml inspection Ears, Nose, Throat Exam: hearing grossly normal, normal ENT inspection, normal pharynx Neck Exam: normal inspection, non-tender, supple, full range of motion Respiratory Exam: normal breath sounds, lungs clear Cardiovascular/Chest Exam: normal heart sounds, regular rate/rhythm, normal peripheral pulses Abdominal/Gastrointestinal Exam: soft, normal bowel sounds, No tenderness Extremity Exam: non-tender, normal range of motion, normal inspection Neurologic Exam: alert, oriented x 3, cooperative, 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, normal mood/affect, nml cerebellar function, sensation nml, No motor deficits, No sensory deficit Skin Exam: normal color SpO2 Interpretation: normal SpO2: 99 O2 Delivery: Room Air Ordered Tests: Active Orders 24 hr Category Date Time Status Cctv Technician STAT Care 04/22/21 18:49 Active EKG-ER Only STAT Care 04/22/21 18:48 Active IV Insertion STAT Care 04/22/21 18:48 Active Oxygen-ED Only Nasal Cannula 2 lpm Care 04/22/21 18:48 Active CHEST 1 VIEW (PORTABLE) Stat Exams 04/22/21 18:49 Taken CHEST WITH CONTRAST [CT] Stat Exams 04/22/21 19:51 Taken CBC W DIFF Stat Lab 04/22/21 18:54 Completed CMP Stat Lab 04/22/21 18:54 Completed D-DIMER QUANTITATIVE Stat Lab 04/22/21 19:12 Completed Lactic Acid Stat Lab 04/22/21 18:48 Completed MAGNESIUM Stat Lab 04/22/21 18:54 Completed NT PRO BNP Stat Lab 04/22/21 18:54 Completed TROPONIN Q3H Lab 04/22/21 18:54 Completed TROPONIN Q3H Lab 04/22/21 22:10 Received TROPONIN Q3H Lab 04/23/21 01:00 Ordered TROPONIN Q3H Lab 04/23/21 04:00 Ordered TROPONIN Q3H Lab 04/23/21 07:00 Ordered UA W/RFX UR CULTURE Stat Lab 04/22/21 19:14 Completed Medication Summary Discontinued Medications Generic Name Dose Route Start Last Admin Trade Name Mauricioq PRN Reason Stop Dose Admin Sodium Chloride 1,000 mls @ 999 mls/hr 04/22/21 19:28 04/22/21 19:33 Sodium Chloride 0.9% 1000 Ml IV 04/22/21 20:28 999 mls/hr .Q1H1M STA Administration Sodium Chloride Confirm 04/22/21 19:30 Sodium Chloride 0.9% 1000 Ml Administered 04/22/21 19:31 Dose 1,000 mls @ ud .ROUTE .STK-MED ONE Lab/Rad Data: Laboratory Result Diagrams 04/22/21 18:54 04/22/21 18:54 Laboratory Results 07/09/0204/22/21 04/22/21 Range/Units 19:14 19:12 18:54 WBC (4.0-10.5) K/mm3 RBC (4.1-5.4) M/mm3 Hgb (12.0-16.0) gm/dl Hct (35-47) % MCV (78-100) fl MCH (26-32) pg MCHC (32-36) g/dl RDW (11.5-14.0) % Plt Count (150-450) K/mm3 MPV (7.5-11.0) fl Gran % (36.0-66.0) % Eos # (Auto) (0-0.5) Absolute Lymphs (auto) (1.0-4.6) Absolute Monos (auto) (0.0-1.3) Lymphocytes % (24.0-44.0) % Monocytes % (0.0-12.0) % Eosinophils % (0.00-5.0) % Basophils % (0.0-0.4) % Absolute Granulocytes (1.4-6.9) Basophils # (0-0.4) D-Dimer 653 H* (215-500) ng/mL Sodium (137-145) mmol/L Potassium (3.5-5.1) mmol/L Chloride (98-107) mmol/L Carbon Dioxide (22-30) mmol/L Anion Gap (5-15) MEQ/L BUN (7-17) mg/dL Creatinine (0.52-1.04) mg/dL Estimated GFR ML/MIN Glucose (74-106) mg/dL Lactic Acid (0.4-2.0) Calcium (8.4-10.2) mg/dL Magnesium (1.6-2.3) mg/dL Total Bilirubin (0.2-1.3) mg/dL AST (14-36) U/L ALT (0-35) U/L Alkaline Phosphatase (38-126) U/L Troponin I < 0.012 (0.000-0.034) ng/mL NT-Pro-B Natriuret Pep (0-900) pg/mL Serum Total Protein (6.3-8.2) g/dL Albumin (3.5-5.0) g/dL Urine Color YELLOW (YELLOW) Urine Appearance SLIGHTLY CLOUDY (CLEAR) Urine pH 6.0 (5-6) Ur Specific [place] 1.025 (1.005-1.025) Urine Protein NEGATIVE (Negative) Urine Ketones NEGATIVE (NEGATIVE) Urine Blood NEGATIVE (0-5) Sai/ul Urine Nitrite NEGATIVE (NEGATIVE) Urine Bilirubin NEGATIVE (NEGATIVE) Urine Urobilinogen NEGATIVE (0-1) mg/dL Ur Leukocyte Esterase NEGATIVE (NEGATIVE) Urine WBC (Auto) 0-2 (0-5) /HPF Urine RBC (Auto) 0-2 (0-2) /HPF U Epithel Cells (Auto) NONE (FEW) /HPF Urine Bacteria (Auto) RARE (NEGATIVE) /HPF Urine Mucus (Auto) SLIGHT (NEGATIVE) /HPF Urine Culture Reflexed NO (NO) Urine Glucose NEGATIVE (NEGATIVE) mg/dL 04/22/21 04/22/21 04/22/21 Range/Units 18:54 18:54 18:48 WBC 7.5 (4.0-10.5) K/mm3 RBC 4.17 (4.1-5.4) M/mm3 Hgb 12.1 (12.0-16.0) gm/dl Hct 37.9 (35-47) % MCV 90.9 (78-100) fl MCH 29.0 (26-32) pg MCHC 31.9 L (32-36) g/dl RDW 13.4 (11.5-14.0) % Plt Count 300 (150-450) K/mm3 MPV 10.1 (7.5-11.0) fl Gran % 51.2 (36.0-66.0) % Eos # (Auto) 0.45 (0-0.5) Absolute Lymphs (auto) 2.57 (1.0-4.6) Absolute Monos (auto) 0.56 (0.0-1.3) Lymphocytes % 34.5 (24.0-44.0) % Monocytes % 7.5 (0.0-12.0) % Eosinophils % 6.0 H (0.00-5.0) % Basophils % 0.8 (0.0-0.4) % Absolute Granulocytes 3.81 (1.4-6.9) Basophils # 0.06 (0-0.4) D-Dimer (215-500) ng/mL Sodium 143 (137-145) mmol/L Potassium 4.3 (3.5-5.1) mmol/L Chloride 102 (98-107) mmol/L Carbon Dioxide 27 (22-30) mmol/L Anion Gap 19.1 H (5-15) MEQ/L BUN 12 (7-17) mg/dL Creatinine 0.82 (0.52-1.04) mg/dL Estimated GFR > 60.0 ML/MIN Glucose 178 H (74-106) mg/dL Lactic Acid 1.7 (0.4-2.0) Calcium 9.7 (8.4-10.2) mg/dL Magnesium 1.8 (1.6-2.3) mg/dL Total Bilirubin 0.30 (0.2-1.3) mg/dL AST 25 (14-36) U/L ALT 18 (0-35) U/L Alkaline Phosphatase 86 (38-126) U/L Troponin I (0.000-0.034) ng/mL NT-Pro-B Natriuret Pep 49.4 (0-900) pg/mL Serum Total Protein 7.4 (6.3-8.2) g/dL Albumin 4.5 (3.5-5.0) g/dL Urine Color (YELLOW) Urine Appearance (CLEAR) Urine pH (5-6) Ur Specific [place] (1.005-1.025) Urine Protein (Negative) Urine Ketones (NEGATIVE) Urine Blood (0-5) Sai/ul Urine Nitrite (NEGATIVE) Urine Bilirubin (NEGATIVE) Urine Urobilinogen (0-1) mg/dL Ur Leukocyte Esterase (NEGATIVE) Urine WBC (Auto) (0-5) /HPF Urine RBC (Auto) (0-2) /HPF U Epithel Cells (Auto) (FEW) /HPF Urine Bacteria (Auto) (NEGATIVE) /HPF Urine Mucus (Auto) (NEGATIVE) /HPF Urine Culture Reflexed (NO) Urine Glucose (NEGATIVE) mg/dL - Progress Progress: improved Air Movement: good Progress Note: 04/22/21 22:14 55 years old is evaluated for generalized weakness fatigue/tiredness with some shortness of breath. EKG showed sinus rhythm with no acute ST elevations. Has right bundle branch block. Initial troponins are negative. Grossly unremarkable chemistries except for elevated gap and is given fluids. Patient has not been eating drinking well. Has mildly elevated D-dimers, CTA is negative for pulmonary embolism or any other acute cardiopulmonary findings. It did show gallbladder wall thickening/edema suggesting acute cholecystitis but patient has minimal tenderness in right upper quadrant without fever and has normal liver enzymes. Since patient is diabetic, given a dose of antibiotic as well. Patient is feeling better on reevaluation. I have discussed with Dr. Jeannie yao, patient would be admitted to the hospital, will obtain ultrasound in the morning. She would be kept n.p.o. and fluids. Plan discussed with patient who understand and agrees with it. Antibiotics given: Yes Discussed with .: Valarie Will see patient in: hospital (observation) Counseled pt/family regarding: lab results, diagnosis, rad results - Departure Departure Disposition: Observation Clinical Impression: Generalized weakness, Cholecystitis, Dehydration Dyspnea, unspecified Qualifiers: Dyspnea type: unspecified Qualified Code(s): R06.00 - Dyspnea, unspecified Condition: Stable Critical Care Time: No Referrals: VICKY GUTIERREZ MD [Primary Care Provider] -
[2021-04-22 18:58] LABS: Absolute Neutrophil Ct (ANC) 3.81 (1.4-6.9); BASOPHIL % 0.8 % (0.0-0.4); Basophil (Absolute #) 0.06 (0-0.4); Eosinophil (Absolute #) 0.45 (0-0.5); Hematocrit 37.9 % (35-47); Hemoglobin 12.1 gm/dl (12.0-16.0); Lymphocyte (Absolute #) 2.57 (1.0-4.6); Lymphocytes % 34.5 % (24.0-44.0); Mean Cell Volume 90.9 fl (78-100); Mean Corpuscular Hgb Concent. 31.9 g/dl (32-36); Mean Platelet Volume 10.1 fl (7.5-11.0); Monocyte (Absolute #) 0.56 (0.0-1.3); Monocytes % 7.5 % (0.0-12.0); Neutrophil % 51.2 % (36.0-66.0); Platelet Count 300 K/mm3 (150-450); Red Blood Count 4.17 M/mm3 (4.1-5.4); Red Cell Distribution Width 13.4 % (11.5-14.0); White Blood Count 7.5 K/mm3 (4.0-10.5)
[2021-04-22 19:19] LABS: ALBUMIN 4.5 g/dL (3.5-5.0); ALKALINE PHOSPHATASE 86 U/L (38-126); ANION GAP 19.1 MEQ/L (5-15); BLOOD UREA NITROGEN 12 mg/dL (7-17); CHLORIDE 102 mmol/L (98-107); Calcium 9.7 mg/dL (8.4-10.2); Carbon Dioxide 27 mmol/L (22-30); Creatinine 1 0.82 mg/dL (0.52-1.04); EST GLOMERULAR FILTRATION RATE > 60.0 ML/MIN; Glucose 178 mg/dL (74-106); MAGNESIUM 1.8 mg/dL (1.6-2.3); NT PRO BNP 49.4 pg/mL (0-900); Potassium 4.3 mmol/L (3.5-5.1); SGOT/AST 25 U/L (14-36); SGPT/ALT 18 U/L (0-35); SODIUM 143 mmol/L (137-145); Total Protein 7.4 g/dL (6.3-8.2)
[2021-04-22 19:27] LABS: Appearance SLIGHTLY CLOUDY (CLEAR); Bacteria RARE /HPF (NEGATIVE); Bilirubin NEGATIVE (NEGATIVE); Blood NEGATIVE Ery/ul (0-5); Glucose NEGATIVE (NEGATIVE); Ketones NEGATIVE (NEGATIVE); Leukocyte Esterase NEGATIVE (NEGATIVE); Mucus SLIGHT /HPF (NEGATIVE); Nitrite NEGATIVE (NEGATIVE); Protein,Urine Dip NEGATIVE (Negative); RBC 0-2 /HPF (0-2); Specific Gravity 1.025 (1.005-1.025); Urobilinogen NEGATIVE mg/dL (0-1); WBC 0-2 /HPF (0-5)
[2021-04-22] MEDS ORDERED: Sodium Chloride 0.9% 1000 ML 1,000 ML IV STA (19:28)
[2021-04-22] MEDS ORDERED: Sodium Chloride 0.9% 1000 ML 1,000 ML ONE (19:30)
[2021-04-22] MEDS ORDERED: Zosyn 3.375 GM Vial 3.375 GM in Sodium Chloride 100ML MINI-BAG PLUS 100 ML IV ONE (22:13)
[2021-04-22] MEDS ORDERED: Sodium Chloride 0.9% 1000 ML 1,000 ML IV SCH (22:30)
[2021-04-22] MEDS ORDERED: Zosyn 3.375 GM Vial IV ONE (23:20)
[2021-04-22] MEDS ORDERED: Sodium Chloride 100ML MINI-BAG PLUS 100 ML IV ONE (23:21)
[2021-04-22 23:35] VITALS: O2SAT 97
[2021-04-23 00:08] VITALS: BP 160/87; PULSE 57
[2021-04-23] MEDS ORDERED: MORPHINE SULFATE 2 MG INJ IV PRN (00:32)
[2021-04-23] MEDS ORDERED: DUONEB 0.5-3 MG/3 ml Neb IH PRN (00:32)
[2021-04-23] MEDS ORDERED: Zosyn 3.375 GM Vial 3.375 GM in Sodium Chloride 100ML MINI-BAG PLUS 100 ML IV SCH (00:32)
[2021-04-23] MEDS ORDERED: HUMALOG SQ PRN (00:32)
[2021-04-23] MEDS ORDERED: PROTONIX 40 MG IV IV SCH (10:00)
--- NOTE | 2021-04-23 22:22 | XRAY ---
Exam: AP upright portable chest film from 04/22/2021. Comparison: AP upright portable chest film from 04/10/2020. Indication: Shortness of breath. Findings: The heart size is normal. There are changes consistent with prior CABG and midline sternotomy representing no change. The remainder of the dale and mediastinal structures appears unremarkable. There is evidence of prior orthopedic surgery within the lower cervical spine with partially seen metallic hardware. The lungs are adequately expanded and reveal no air space infiltrates, vascular congestion, pneumothorax, or pleural fluid. Lateral osteophyte formation is seen within the mid and lower thoracic spine. No acute osseous process is seen. Impression: 1. No acute cardiopulmonary disease is seen. 2. Status post CABG and lower cervical spine orthopedic surgery. Correlate clinically.
--- NOTE | 2021-04-23 22:43 | XRAY ---
Exam: CT of the chest with IV contrast per PE protocol from 04/22/2021. CTDI: 30.61 mGy Comparison: None. Indication: 55-year-old female with elevated d-dimer; dyspnea on exertion; shortness of breath at rest; overwhelming fatigue; history of prior [place]; former smoker. Technique: Post-IV contrast axial images were obtained through the chest during automated injection of 100 cc of Isovue 370 IV contrast material using the PE protocol. Reconstructed coronal and sagittal images were created and reviewed. Findings: The pulmonary arteries enhance adequately and reveal no filling defects to suggest clot/emboli. Some coronary artery vascular calcification is seen on the left. The thoracic aorta reveals mild atherosclerotic vascular calcification. No thoracic aortic aneurysm or dissection is seen. The heart size is normal without pericardial effusion. There is a 1.5 cm in diameter short axis lymph node projected over the right hilum. No other unusual mediastinal lymphadenopathy is seen. I see evidence of prior CABG with midline sternotomy and sternal wires. The lung james reveal minimal bilateral posterior compression atelectatic changes at the lung bases. No air space infiltrates are seen. There is also minimal atelectasis/scarring at the anterior aspect of both lung bases. No pneumothorax or pleural fluid is seen. No suspicious soft tissue lung nodule is seen. Minimally enlarged portal caval lymph nodes are seen. The gallbladder is partially seen and reveals mild gallbladder wall hyperemia with a suggestion of a small amount of pericholecystic edema. Correlate clinically regarding acute cholecystitis. The adrenal glands appear grossly unremarkable. I believe there is some mild diffuse fatty infiltration of the liver. Mild diffuse thoracic spondylosis is seen. A metallic plate and screws from orthopedic procedure is partially seen within the lower cervical spine. This is probably due to prior lower cervical anterior fusion procedure. Impression: 1. I see no evidence of pulmonary embolism. 2. No acute pulmonary abnormality is seen. 3. Some suspicious CT findings are noted within the right upper quadrant of the abdomen which could be possibly due to acute cholecystitis. Correlate clinically regarding the need for further investigational study. 4. I believe there is some mild hepatic steatosis.
== END 2021-04-23 00:55 | disposition left against medical advice (07) ==
LOC: ED 18:27 → MED SURG 04-23 00:23
PROVIDERS: ADMIT Family Medicine; ATTEND Family Medicine
DX: R06.00 Dyspnea, unspecified (principal); R53.1 Weakness; E86.0 Dehydration; K81.9 Cholecystitis, unspecified; J44.9 Chronic obstructive pulmonary disease, unspecified; Z99.81 Dependence on supplemental oxygen; E11.9 Type 2 diabetes mellitus without complications; I10 Essential (primary) hypertension; Z79.899 Other long term (current) drug therapy; Z79.01 Long term (current) use of anticoagulants; E78.00 Pure hypercholesterolemia, unspecified; Z95.1 Presence of aortocoronary bypass graft; Z86.79 Personal history of other diseases of the circulatory system; Z20.828 Contact with and (suspected) exposure to other viral communicable diseases
CPT/HCPCS: 36000; 36415; 71045; 71260; 80053; 81001; 83605; 83735; 83880; 84484; 85025; 85379; 93005; 93041; 96365; 99284; U0003

== ENCOUNTER 2022-08-14 12:09 | Emergency (ER) | payer MEDICARE ==
--- NOTE | 2022-08-14 12:10 | ERPHSYRPT ---
- History of Present Illness Time Seen by Provider: 08/14/22 12:10 Historian: patient Exam Limitations: no limitations Physician History: This is an overweight 57-year-old white female patient of Dr. Kang who has had intermittent abdominal pain with vomiting over the last several days. She was seen at [facility] last week because of chest pain and vomiting. She was at the walk-in clinic today where Shaq Barlow, nurse practitioner, evaluated the patient and he was concerned that she had a significant amount of abdominal pain with associated vomiting and felt she needed some radiographic studies and further evaluation and therefore he sent the patient to the emergency department. Patient has diffuse abdominal pain. She does have a history of gastroesophageal reflux disease, anxiety disorder, COPD, hyperlipidemia, hypertension, diabetes, peripheral neuropathy and is taking Plavix. She has a history of coronary artery disease including CABG and coronary artery stent placement in the past. Timing/Duration: day(s) (Several days) Activities at Onset: none Quality: aching Abdominal Pain Onset Location: generalized abdomen Pain Radiation: no radiation Severity of Pain-Max: mild (To moderate) Severity of Pain-Current: mild (To moderate) Modifying Factors: Improves With: nothing Associated Symptoms: nausea, vomiting, No chest pain, No shortness of breath Previous symptoms: same symptoms as today, recently seen, recently treated Allergies/Adverse Reactions: No Known Drug Allergies Allergy (Verified 08/14/22 12:25) Home Medications: Atorvastatin Calcium [Lipitor 40Mg] 80 mg PO HS 04/17/15 [History] Clopidogrel Bisulfate [PLAVIX Tablet] 75 mg PO DAILY 04/17/15 [History] Hydrocodone/Acetaminophen [Bruce 10-325 Tablet] 10 mg PO QID PRN PRN 04/17/15 [History] Magnesium Oxide 400 mg [Mag-Ox 400] 400 mg PO BID 04/17/15 [History] Metformin HCl 500 mg [Glucophage 500 MG] 1,000 mg PO DAILY 04/17/15 [History] Saline-3S/Dha/Epa/Fish Oil [Fish Oil EC 1,200 mg Softgel] 2 ea PO DAILY 04/17/15 [History] Pantoprazole Sodium [Protonix] 40 mg PO DAILY 04/17/15 [History] Aspirin 81 gm Chew [Baby Aspirin 81 mg Chew] 81 mg PO DAILY 05/30/15 [History] Gabapentin [Neurontin] 800 mg PO TID 05/30/15 [History] Isosorbide Mononitrate 60 mg [Imdur 60MG] 90 mg PO DAILY 07/05/15 [History] Ranolazine [Ranexa] 1,000 mg PO BID 07/05/15 [History] Oxybutynin Chloride 5 mg PO BID 01/05/19 [History] Ezetimibe 10 mg [Zetia 10 MG] 10 mg PO DAILY 03/24/19 [History] Metoprolol Tartrate 25 mg [Lopressor 25MG Tab] 50 mg PO BID 04/23/21 [History] Hx Tetanus, Diphtheria Vaccination/Date Given: No Hx Influenza Vaccination/Date Given: Yes Hx Pneumococcal Vaccination/Date Given: Yes Travel Risk - International Travel Have you traveled outside of the country in past 3 weeks: No - Coronavirus Screening Are you exhibiting any of the following symptoms?: No Close contact with a COVID-19 positive Pt in past 14-21 Days: No - Vaccine Status Have you recieved a Covid-19 vaccination: Yes [employer]: [employer] - Vaccination Dates Date of 2cond Vaccination (if applicable): 01/2021 - Review of Systems Constitutional: No Symptoms Eyes: No Symptoms Ears, Nose, & Throat: No Symptoms Respiratory: No Symptoms Cardiac: No Symptoms Abdominal/Gastrointestinal: Abdominal Pain, Nausea, Vomiting Genitourinary Symptoms: No Symptoms Musculoskeletal: No Symptoms Skin: No Symptoms Neurological: No Symptoms Psychological: Anxiety Endocrine: No Symptoms Hematologic/Lymphatic: No Symptoms Immunological/Allergic: No Symptoms All Other Systems: Reviewed and Negative - Past Medical History Pertinent Past Medical History: Yes Neurological History: Peripheral Neuropathy ENT History: No Pertinent History Cardiac History: Coronary Artery Disease, High Cholesterol, Hypertension, Myocardial Infarction ([place]) Respiratory History: COPD, Sleep Apnea, Other Endocrine Medical History: Diabetes Type II Musculoskeletal History: No Pertinent History GI Medical History: GERD, Other History: No Pertinent History Psycho-Social History: Anxiety, Depression Female Reproductive Disorders: No Pertinent History Other Medical History: hiatal hernia - Past Surgical History Past Surgical History: Yes Neuro Surgical History: No Pertinent History Cardiac: CABG, Cardiac Catheterization, Cardiac Stent Respiratory: No Pertinent History Gastrointestinal: No Pertinent History Genitourinary: No Pertinent History Musculoskeletal: Orthopedic Surgery Female Surgical History: No Pertinent History Other Surgical History: NECK SURG. C5-7 disc replaced and plate placed and left ankle stabilization and wire placed,. CABG x 4 vessels. Cardiac stents x 2. Follows Dr. Sousa every 6 months - Social History Smoking Status: Former smoker How long have you smoked: years Exposure to second hand smoke: No Drug Use: none Patient Lives Alone: Yes - Nursing Vital Signs Nursing Vital Signs: Initial Vital Signs Temperature 97.3 F 08/14/22 12:19 Pulse Rate 66 08/14/22 12:19 Respiratory Rate 18 08/14/22 12:19 Blood Pressure 160/85 08/14/22 12:19 O2 Sat by Pulse Oximetry 98 08/14/22 12:19 Pain Scale Pain Intensity 3 - Physical Exam General Appearance: no apparent distress, alert, anxiety, obese Eye Exam: PERRL/EOMI, eyes nml inspection Ears, Nose, Throat Exam: normal ENT inspection, moist mucous membranes Neck Exam: normal inspection, non-tender, supple, full range of motion Respiratory Exam: normal breath sounds, lungs clear, airway intact, No chest tenderness, No respiratory distress Cardiovascular Exam: regular rate/rhythm, normal heart sounds, normal peripheral pulses Gastrointestinal/Abdomen Exam: soft, normal bowel sounds, tenderness (Generalized), guarding (Generalized to palpation), No rebound Pelvic Exam: not done Rectal Exam: not done Back Exam: normal inspection, normal range of motion, No CVA tenderness, No vertebral tenderness Extremity Exam: normal inspection, normal range of motion, pelvis stable Neurologic Exam: alert, oriented x 3, cooperative, warp tier II-XII nml as tested, normal mood/affect, nml cerebellar function, nml station & gait, sensation nml Skin Exam: normal color, warm, dry Lymphatic Exam: No adenopathy SpO2 Interpretation: normal O2 Delivery: Room Air - Course Nursing assessment & vital signs reviewed: Yes Ordered Tests: Active Orders 24 hr Category Date Time Status IV Insertion STAT Care 08/14/22 12:17 Active ABDOMEN AND PELVIS W/0 CONTRAS [CT] Stat Exams 08/14/22 12:17 Completed AMYLASE Stat Lab 08/14/22 12:40 Completed CBC W DIFF Stat Lab 08/14/22 12:40 Completed CMP Stat Lab 08/14/22 12:40 Completed LIPASE Stat Lab 08/14/22 12:40 Completed Lactic Acid Stat Lab 08/14/22 12:35 Completed UA W/RFX CULTURE Stat Lab 08/14/22 Completed Lab/Rad Data: Laboratory Result Diagrams 08/14/22 12:40 08/14/22 12:40 Laboratory Results 08/14/22 08/14/22 08/14/22 Range/Units Unknown 12:40 12:40 WBC 6.4 (4.0-10.5) x10^3/uL RBC 4.32 (4.1-5.4) x10^6/uL Hgb 12.5 (12.0-16.0) g/dL Hct 39.7 (35-47) % MCV 91.9 (78-100) fL MCH 28.9 (26-32) pg MCHC 31.5 L (32-36) g/dL RDW 12.8 (11.5-14.0) % Plt Count 325 (150-450) x10^3/uL MPV 9.7 (7.5-11.0) fL Gran % 55.6 (36.0-66.0) % Immature Gran % (Auto) 0.2 (0.00-0.4) % Nucleat RBC Rel Count 0.0 (0.00-0.1) % Eos # (Auto) 0.30 (0-0.5) x10^3/uL Immature Gran # (Auto) 0.01 (0.00-0.03) x10^3u/L Absolute Lymphs (auto) 2.02 (1.0-4.6) x10^3/uL Absolute Monos (auto) 0.46 (0.0-1.3) x10^3/uL Absolute Nucleated RBC 0.00 (0.00-0.01) x10^3u/L Lymphocytes % 31.5 (24.0-44.0) % Monocytes % 7.2 (0.0-12.0) % Eosinophils % 4.7 (0.00-5.0) % Basophils % 0.8 (0.0-0.4) % Absolute Granulocytes 3.57 (1.4-6.9) x10^3/uL Basophils # 0.05 (0-0.4) x10^3/uL Sodium 139 (137-145) mmol/L Potassium 4.5 (3.5-5.1) mmol/L Chloride 101 (98-107) mmol/L Carbon Dioxide 31 H (22-30) mmol/L Anion Gap 10.7 (5-15) MEQ/L BUN 11 (7-17) mg/dL Creatinine 0.73 (0.52-1.04) mg/dL Estimated GFR > 60.0 ML/MIN Glucose 111 H (74-106) mg/dL Lactic Acid (0.4-2.0) Calcium 9.5 (8.4-10.2) mg/dL Total Bilirubin 0.80 (0.2-1.3) mg/dL AST 24 (14-36) U/L ALT 16 (0-35) U/L Alkaline Phosphatase 78 (38-126) U/L Serum Total Protein 7.6 (6.3-8.2) g/dL Albumin 4.6 (3.5-5.0) g/dL Amylase 52 (30-110) U/L Lipase 50 (23-300) U/L Urinalys Dipstick Clnc MAIN LAB Urine Color YELLOW (YELLOW) Urine Appearance CLEAR (CLEAR) Urine pH 5.5 (5-6) Ur Specific Wallace 1.025 (1.005-1.025) POC Urine Protein Conf NEGATIVE (Negative) Urine Ketones NEGATIVE (NEGATIVE) Urine Nitrite NEGATIVE (NEGATIVE) Urine Bilirubin NEGATIVE (NEGATIVE) Urine Urobilinogen 0.2 (0-1) mg/dL Urine Leukocytes TRACE A (NEGATIVE) Urine WBC (Auto) 6-10 A (0-5) /HPF Urine RBC (Auto) 0-2 (0-2) /HPF U Epithel Cells (Auto) FEW (FEW) /HPF Urine Bacteria (Auto) RARE (NEGATIVE) /HPF Urine RBC NEGATIVE (0-5) Sai/ul Urine Mucus (Auto) SLIGHT A (NEGATIVE) /HPF Ur Culture Indicated? NO Urine Glucose NEGATIVE (NEGATIVE) mg/dL 08/14/22 Range/Units 12:35 WBC (4.0-10.5) x10^3/uL RBC (4.1-5.4) x10^6/uL Hgb (12.0-16.0) g/dL Hct (35-47) % MCV (78-100) fL MCH (26-32) pg MCHC (32-36) g/dL RDW (11.5-14.0) % Plt Count (150-450) x10^3/uL MPV (7.5-11.0) fL Gran % (36.0-66.0) % Immature Gran % (Auto) (0.00-0.4) % Nucleat RBC Rel Count (0.00-0.1) % Eos # (Auto) (0-0.5) x10^3/uL Immature Gran # (Auto) (0.00-0.03) x10^3u/L Absolute Lymphs (auto) (1.0-4.6) x10^3/uL Absolute Monos (auto) (0.0-1.3) x10^3/uL Absolute Nucleated RBC (0.00-0.01) x10^3u/L Lymphocytes % (24.0-44.0) % Monocytes % (0.0-12.0) % Eosinophils % (0.00-5.0) % Basophils % (0.0-0.4) % Absolute Granulocytes (1.4-6.9) x10^3/uL Basophils # (0-0.4) x10^3/uL Sodium (137-145) mmol/L Potassium (3.5-5.1) mmol/L Chloride (98-107) mmol/L Carbon Dioxide (22-30) mmol/L Anion Gap (5-15) MEQ/L BUN (7-17) mg/dL Creatinine (0.52-1.04) mg/dL Estimated GFR ML/MIN Glucose (74-106) mg/dL Lactic Acid 1.5 (0.4-2.0) Calcium (8.4-10.2) mg/dL Total Bilirubin (0.2-1.3) mg/dL AST (14-36) U/L ALT (0-35) U/L Alkaline Phosphatase (38-126) U/L Serum Total Protein (6.3-8.2) g/dL Albumin (3.5-5.0) g/dL Amylase (30-110) U/L Lipase (23-300) U/L Urinalys Dipstick Clnc Urine Color (YELLOW) Urine Appearance (CLEAR) Urine pH (5-6) Ur Specific Wallace (1.005-1.025) POC Urine Protein Conf (Negative) Urine Ketones (NEGATIVE) Urine Nitrite (NEGATIVE) Urine Bilirubin (NEGATIVE) Urine Urobilinogen (0-1) mg/dL Urine Leukocytes (NEGATIVE) Urine WBC (Auto) (0-5) /HPF Urine RBC (Auto) (0-2) /HPF U Epithel Cells (Auto) (FEW) /HPF Urine Bacteria (Auto) (NEGATIVE) /HPF Urine RBC (0-5) Sai/ul Urine Mucus (Auto) (NEGATIVE) /HPF Ur Culture Indicated? Urine Glucose (NEGATIVE) mg/dL - Progress Progress: improved, pain not gone completely Progress Note: 08/14/22 14:21 CT of the abdomen pelvis without contrast shows uterine leiomyomatosis and diffuse fecal stasis. No acute intra-abdominal or intrapelvic findings. Counseled pt/family regarding: lab results, diagnosis, need for follow-up, rad results - Departure Departure Disposition: Home Clinical Impression: Constipation, Diffuse leiomyomatosis of uterus Condition: Stable Critical Care Time: No Referrals: VICKY KANG MD [Primary Care Provider] - Follow up/PCP as directed Additional Instructions: Follow-up with your primary care physician for chronic pain control and bowel hygiene instructions. Drink plenty of fluids. Use MiraLAX [id number]. Follow-up with gynecology for the finding of uterine leiomyomatosis
[2022-08-14 12:23] VITALS: BP 160/85
[2022-08-14 12:31] LABS: Appearance CLEAR (CLEAR); Bilirubin NEGATIVE (NEGATIVE); Dipstick done @ ? MAIN LAB; Glucose NEGATIVE (NEGATIVE); Ketones NEGATIVE (NEGATIVE); Nitrite NEGATIVE (NEGATIVE); Ph 5.5 (5-6); Protein,Urine Dip NEGATIVE (Negative); RBC NEGATIVE Ery/ul (0-5); Specific Gravity 1.025 (1.005-1.025); Urobilinogen 0.2 mg/dL (0-1)
[2022-08-14 12:36] LABS: Bacteria RARE /HPF (NEGATIVE); Epithelial Cells FEW /HPF (FEW); Mucus SLIGHT /HPF (NEGATIVE); RBC 0-2 /HPF (0-2); Urine Cultured Indicated? NO
--- NOTE | 2022-08-14 13:01 | XRAY ---
Indication: Right lower quadrant pain and vomiting. Multiple contiguous axial images obtained through the abdomen and pelvis without contrast. Comparison: None Lung bases demonstrates minimal dependent atelectasis. No infiltrate or effusion. Heart not enlarged. Noncontrasted stomach and bowel loops appear nonobstructed with normal appendix. Mild diffuse scattered colonic fecal debris throughout. No free fluid/air. Enlarged uterus with lobular fundus, suspect uterine leiomyomatosis. Remaining liver, gallbladder, pancreas, spleen, adrenal glands, kidneys, ureters, and bladder are unremarkable for noncontrast exam. Moderate scattered aortoiliac calcifications without AAA. Osseous structures intact with mild/moderate degenerative changes throughout the thoracolumbar spine. No ventral or inguinal hernias. Impression: 1. Enlarged uterus with lobular fundus, probable leiomyomatosis. 2. Mild diffuse fecal stasis, arteriosclerotic disease, and degenerative spondylosis. 3. Remaining CT abdomen/pelvis without contrast exam is negative.
[2022-08-14 13:07] LABS: Absolute Neutrophil Ct (ANC) 3.57 x10^3/uL (1.4-6.9); Basophil (Absolute #) 0.05 x10^3/uL (0-0.4); Eosinophil % 4.7 % (0.00-5.0); Hematocrit 39.7 % (35-47); Hemoglobin 12.5 g/dL (12.0-16.0); Lymphocyte (Absolute #) 2.02 x10^3/uL (1.0-4.6); Lymphocytes % 31.5 % (24.0-44.0); Mean Cell Volume 91.9 fL (78-100); Mean Corpuscular Hemoglobin 28.9 pg (26-32); Mean Corpuscular Hgb Concent. 31.5 g/dL (32-36); Mean Platelet Volume 9.7 fL (7.5-11.0); Monocyte (Absolute #) 0.46 x10^3/uL (0.0-1.3); Monocytes % 7.2 % (0.0-12.0); Neutrophil % 55.6 % (36.0-66.0); Platelet Count 325 x10^3/uL (150-450); Red Blood Count 4.32 x10^6/uL (4.1-5.4); Red Cell Distribution Width 12.8 % (11.5-14.0); White Blood Count 6.4 x10^3/uL (4.0-10.5)
[2022-08-14 13:28] LABS: ALBUMIN 4.6 g/dL (3.5-5.0); ALKALINE PHOSPHATASE 78 U/L (38-126); AMYLASE 52 U/L (30-110); ANION GAP 10.7 MEQ/L (5-15); BLOOD UREA NITROGEN 11 mg/dL (7-17); CHLORIDE 101 mmol/L (98-107); Calcium 9.5 mg/dL (8.4-10.2); Carbon Dioxide 31 mmol/L (22-30); Creatinine 1 0.73 mg/dL (0.52-1.04); EST GLOMERULAR FILTRATION RATE > 60.0 ML/MIN; Glucose 111 mg/dL (74-106); LIPASE 50 U/L (23-300); Potassium 4.5 mmol/L (3.5-5.1); SGOT/AST 24 U/L (14-36); SGPT/ALT 16 U/L (0-35); SODIUM 139 mmol/L (137-145); Total Protein 7.6 g/dL (6.3-8.2)
[2022-08-14 14:39] VITALS: PULSE 80; O2SAT 97
== END 2022-08-14 14:38 | disposition home or self-care (01) ==
LOC: ED 12:09
DX: K59.00 Constipation, unspecified (principal); D39.8 Neoplasm of uncertain behavior of other specified female genital organs; R10.84 Generalized abdominal pain; R11.10 Vomiting, unspecified; J44.9 Chronic obstructive pulmonary disease, unspecified; E78.5 Hyperlipidemia, unspecified; I10 Essential (primary) hypertension; E11.42 Type 2 diabetes mellitus with diabetic polyneuropathy; Z79.84 Long term (current) use of oral hypoglycemic drugs; Z79.02 Long term (current) use of antithrombotics/antiplatelets; Z79.899 Other long term (current) drug therapy
CPT/HCPCS: 36000; 36415; 74176; 80053; 81015; 82150; 83605; 83690; 85025; 99283